=== PATIENT | male | born 1960 | race African-American/Black ===

== ENCOUNTER 2018-01-15 06:49 | Inpatient (IN) ==
[2018-01-15] MEDS ORDERED: Artificial Tears SOLN 15 ML BOTTLE BOTH EYES PRN (10:32)
[2018-01-15] MEDS ORDERED: Acetaminophen 325 MG TABLET PO PRN (10:37)
--- NOTE | 2018-01-15 11:17 | Internal Med History&Physical ---
Date of Encounter: 01/15/18 Time of Encounter: 11:19 Internal Medicine - H&P: HPI Chief complaint: mrs bacteremia Admitted From: Hospital to Hospital Transfer Plans for Post Hospital Care: [facility] History of present illness: Mr. Rivas is a 57 year old male that has tracheostomy, end-stage renal disease presented from transfer [facility] emergency department for MRSA bacteremia. Patient was seen to have a fever on 01/12/18 at his senior living the [facility] [place]. Blood cultures were drawn at the senior living and he was found to have MRSA bacteremia and started on vancomycin, Zosyn. Urine culture was also collected but patient makes minimal urine. Upon arrival to [place] ICU patient is to be nonverbal which is his baseline. He opens his eyes spontaneously. He does not interact. Patient was found to be hypotensive at [facility] and given 1 bolus of normal saline. Also a right femoral central line was placed. From senior living records patient has a history of MSSA bacteremia with aortic valve endocarditis. This was diagnosed at 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 Patient was admitted to on 09/17/2017 where he had a 87 day stay and ended up being put on tracheostomy and became HD dependent. He again had a YUE YUE which showed aortic valve vegetations and he was continued on chronic Keflex by infectious disease. After this admission patient was discharged to [facility] for further management. Patient has a history of acute CVA as per senior living records. 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 Past Med Surg Social Fam HX - Past Medical History Medical history: atrial fibrillation, diabetes, renal disease Additional medical history: MRSA, SEPSIS DUE TO MRSA, ANEMIA, V-TACH, RETENTION OF URINE Psychiatric history: depression, schizophrenia - Social History Smoking Status: Unknown if ever smoked Smokeless Tobacco Status: No (UNKNOWN) Alcohol use: unknown Drug use: unknown Internal Medicine - H&P: Meds Acetaminophen [Arthritis Pain Relief] 650 mg GTUBE Q6H PRN 01/15/18 [History] Albuterol Neb [Proventil Neb] 2.5 mg IH Q6HR 01/15/18 [History] Aripiprazole [Abilify] 5 mg GTUBE QDPC 01/15/18 [History] Aspirin [Lo-Dose Aspirin EC] 81 mg GTUBE QAM 01/15/18 [History] Atorvastatin [Lipitor] 40 mg GTUBE HS 01/15/18 [History] Benztropine Mesylate 0.5 mg GTUBE QAM 01/15/18 [History] Chlorhexidine Gluconate [Peridex] 15 ml MM BID 01/15/18 [History] Famotidine [Heartburn Prevention] 20 mg GTUBE QAM 01/15/18 [History] Folic Acid 1 mg GTUBE DAILY 01/15/18 [History] Folic Acid/Vit Bcomp,C [Renal-Ronald Tablet] 0.8 mg GTUBE QAM 01/15/18 [History] Gabapentin [Neurontin] 100 mg GTUBE TID 01/15/18 [History] Insulin Glargine,Hum.rec.anlog [Basaglar Kwikpen U-100] 14 unit SQ HS 01/15/18 [ History] Insulin LISPRO [Admelog Solostar] 0 unit SQ TIDAC 01/15/18 [History] Midodrine HCl 10 mg GTUBE QAM 01/15/18 [History] Ondansetron HCl [Zofran] 4 mg PO Q6H PRN 01/15/18 [History] OxyCODONE Immed Rel [Roxicodone 5 MG] 5 mg GTUBE Q8HR PRN 01/15/18 [History] Oxycodone HCl [Oxaydo] 5 mg GTUBE Q8H PRN 01/15/18 [History] Polyethylene Glycol 3350 [MiraLAX] 17 gm GTUBE DAILY PRN 01/15/18 [History] Thiamine (B-1) [Vitamin B-1] 250 mg GTUBE DAILY 01/15/18 [History] clonazePAM [Clonazepam] 0.5 mg GTUBE TID 01/15/18 [History] 3 Allergy/AdvReac Type Severity Reaction Status Date / Time No Known Allergies Allergy Verified 01/15/18 03:27 ROS unobtainable: due to mental status, other (Due to tracheostomy) All Systems PM: A 10-system review of systems was performed and is negative for pertinent findings except as documented above in the HPI. - Constitutional Vitals: Resp Pulse Ox 15 100 01/15/18 10:54 01/15/18 10:54 Exam: General: pleasant, without distress HEENT: Head atraumatic, normocephalic, EOMI, PERRL, absent ear discharge or trauma, Moist Mucous Membranes, uvula midline Neck: nontender to palpation, absent lymphadenopathy, Cardiovascualr: Regular rate and rhythm with no murmur, absent gallops or rubs, absent pedal edema, radial pulses 2 out of 4 Lungs: Clear to auscultation bilaterally, not in respiratory distress Abdomen: Soft nontender, nondistended positive bowel sounds, absent hepatomegaly Skin: warm and dry, absent rash, absent open wounds and nodules MSK: absent clubbing, cyanosis, joints without swelling Neuro: Cranial nerves II through XII intact, UE and LE sensation equal bilaterally, UE and LEstrength 5/5, alert oriented 3, Heel to power intact, finger to nose intact, Gait intact, rhombergs sign negative, b/l plantar reflexes downwards Psych: good insight and judgment, anxious, depressed - Time Spent With Patient Total time spent is greater than 50% in coordination of care (as documented) at patient's floor/unit and/or counseling patient:
--- NOTE | 2018-01-15 11:31 | Pulmonology History & Physical ---
<Solo Hays - Last Filed: 01/15/18 11:59> Date of Encounter: 01/15/18 Time of Encounter: 11:28 Assessment and Plan (1) Septic shock Current visit: Yes Status: Acute Patient presented with fever, hypertension, tachypnea Patient has positive blood cultures of MRSA drawn on [facility] He started on vancomycin and Zosyn on 01/12 at jail His presenting blood pressures 88/44 and patient is a end-stage renal disease patient was given 1 L IV fluid however is very fluid overloaded and could not be given additional fluid resuscitation His blood pressure remained and 88 over 40s lactic acid 1.8 Upon presenting at [facility] patient MAP was less than 60 and was started on Levophed. (2) ESRD (end stage renal disease) Current visit: Yes Status: Acute Patient has a history of ESRD on Wednesday, , Wednesday hemodialysis. Patient has been ESRD for 2 months now longterm records indicate ESRD secondary to acute tubular necrosis with overt hypotension without improvement after being started on hemodialysis. Nephrology consultation for dialysis . CV fluid overloaded with bilateral lower extremity edema and bilateral upper extremity edema. (3) MRSA bacteremia Current visit: Yes Status: Acute Patient has positive blood cultures on 01/12 Source: Possibly pneumonia as patient has thick sputum production. Patient also has left permacath which does not appear to be infected. Plan: Repeat blood cultures drawn on 01/15 by [facility] emergency department. We will draw blood cultures from permacath. We will obtain sputum culture. Continue vancomycin. (4) Chronic endocarditis Current visit: Yes Status: Acute Patient has history of MSSA endocarditis. Initially diagnosed at [facility] on September/2017. YUE at that time showed aortic valve abscess and vegetation. Patient opted for medical management and was put on IV antibiotics for 6 weeks. Patient was readmitted to [facility] were repeat YUE on 10/05 showed a EF of 50-55% with aortic valve vegetation and moderate severe aortic insufficiency and moderate tricuspid regurgitation and patient was continued on chronic oral Keflex by infectious disease. Patient now has MRSA bacteremia and there is concern for endocarditis We have ordered a TTE and cardiology has been consulted as well. If TTE is nondiagnostic we will obtain a YUE. Qualifiers: Endocarditis type: infective Infective endocarditis organism: bacterial Qualified Code(s): I33.0 - Acute and subacute infective endocarditis (5) Type 2 diabetes mellitus Current visit: Yes Status: Acute Patient has a history of type 2 diabetes mellitus insulin-dependent Hemoglobin A1c on 08/27 was 9.8 Patient is nothing by mouth. 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 Rivas is a 57 year old male that has tracheostomy, end-stage renal disease presented from transfer [facility] emergency department for MRSA bacteremia. Patient was seen to have a fever on 01/12/18 at his jail the [facility] [place]. Blood cultures were drawn at the jail and he was found to have MRSA bacteremia and started on vancomycin, Zosyn. Urine culture was also collected but patient makes minimal urine. Upon arrival to [place] ICU patient is to be nonverbal which is his baseline. He opens his eyes spontaneously. He does not interact. Patient was found to be hypotensive at [facility] and given 1 bolus of normal saline. Also a right femoral central line was placed. From jail records patient has a history of MSSA bacteremia with aortic valve endocarditis. 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 Patient was admitted to on 09/17/2017 where he had a 87 day stay and ended up being put on tracheostomy and became HD dependent. He again had a YUE YUE which showed aortic valve vegetations and he was continued on chronic Keflex by infectious disease. After this admission patient was discharged to [facility] for further management. Patient has a history of acute CVA as per jail records. 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 Past Med Surg Social Fam HX - Past Medical History Medical history: atrial fibrillation, diabetes, renal disease Additional medical history: MRSA, SEPSIS DUE TO MRSA, ANEMIA, V-TACH, RETENTION OF URINE Psychiatric history: depression, schizophrenia - Social History Smoking Status: Unknown if ever smoked Smokeless Tobacco Status: No (UNKNOWN) Alcohol use: unknown Drug use: unknown Medications and Allergies Acetaminophen [Arthritis Pain Relief] 650 mg GTUBE Q6H PRN 01/15/18 [History] Albuterol Neb [Proventil Neb] 2.5 mg IH Q6HR 01/15/18 [History] Aripiprazole [Abilify] 5 mg GTUBE QDPC 01/15/18 [History] Aspirin [Lo-Dose Aspirin EC] 81 mg GTUBE QAM 01/15/18 [History] Atorvastatin [Lipitor] 40 mg GTUBE HS 01/15/18 [History] Benztropine Mesylate 0.5 mg GTUBE QAM 01/15/18 [History] Chlorhexidine Gluconate [Peridex] 15 ml MM BID 01/15/18 [History] Famotidine [Heartburn Prevention] 20 mg GTUBE QAM 01/15/18 [History] Folic Acid 1 mg GTUBE DAILY 01/15/18 [History] Folic Acid/Vit Bcomp,C [Renal-Ronald Tablet] 0.8 mg GTUBE QAM 01/15/18 [History] Gabapentin [Neurontin] 100 mg GTUBE TID 01/15/18 [History] Insulin Glargine,Hum.rec.anlog [Basaglar Kwikpen U-100] 14 unit SQ HS 01/15/18 [ History] Insulin LISPRO [Admelog Solostar] 0 unit SQ TIDAC 01/15/18 [History] Midodrine HCl 10 mg GTUBE QAM 01/15/18 [History] Ondansetron HCl [Zofran] 4 mg PO Q6H PRN 01/15/18 [History] OxyCODONE Immed Rel [Roxicodone 5 MG] 5 mg GTUBE Q8HR PRN 01/15/18 [History] Oxycodone HCl [Oxaydo] 5 mg GTUBE Q8H PRN 01/15/18 [History] Polyethylene Glycol 3350 [MiraLAX] 17 gm GTUBE DAILY PRN 01/15/18 [History] Thiamine (B-1) [Vitamin B-1] 250 mg GTUBE DAILY 01/15/18 [History] clonazePAM [Clonazepam] 0.5 mg GTUBE TID 01/15/18 [History] 3 Allergy/AdvReac Type Severity Reaction Status Date / Time No Known Allergies Allergy Verified 01/15/18 03:27 ROS unobtainable: due to mental status, other (tracheostomy) All Systems: The remainder of the systems were reviewed and are negative Physical Examination Vital Signs: Vital Signs, Last 4 Hours Resp Pulse Ox 01/15/18 10:54 15 100 01/15/18 09:40 26 99 General appearance: no acute distress, other (Opens eyes spontaneously) Eyes: nonicteric ENT: oropharynx dry Neck: supple, no JVD Effort: mildly labored, other (Tracheostomy) Inspection: normal Auscultation: bilateral: rhonchi Cardiovascular: regular rate and rhythm Gastrointestinal: normoactive bowel sounds, soft, non-tender, non-distended, other (PEG tube without erythema) Integumentary: normal, other Extremities: no clubbing, pink and warm, pulses normal, edema ( has edema in bilateral upper and lower extremities) Musculoskeletal: ROM normal, other (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 Rivas is a 57 year old male All Systems: The remainder of the systems were reviewed and are negative Physical Examination Vital Signs: Vital Signs, Last 4 Hours Resp Pulse Ox 01/15/18 10:54 15 100 01/15/18 09:40 26 99 - Attending Attestation I examined this patient and my medical decision-making was reviewed with the Resident Physician. I agree with the documented findings, disposition and treatment plan as described except to the extent set forth below. Patient seen and examined. Labs, radiology, chart personally reviewed. 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 Pulmonary: Acceptable oxygenation and ventilation and adjusted vent setting with lowering his respiratory rate and patient chronic tracheostomy and is requiring vent. Cardiovascular: Patient is in septic shock and he has bacteremia and he has strong history of previous endocarditis. Cardiology consulted for evaluation and agreed to start with TTE and may need eventually YUE. Overall prognosis is poor and he is not tolerating volume because of his ESRD and he will need HD. GI: Nutrition per dietary and GI prophylaxis per routine. Patient has feeding tube. Heme: DVT prophylaxis per routine. ID: Continue antibiotics and plan to de-escalation. Patient will be on broad- spectrum antibiotics and will consult infectious disease. Renal; patient underwent hemodialysis and nephrology is being contacted. Source of bacteremia is unclear however it could be or differential diagnosis might be the source of the bactremia. Endorcine: blood glucose is monitored Lines: all lines checked and no evidence of infections Skin: skin care to prevent pressure ulcers per nursing routine care. Wound care. Prognosis is poor. I spent 35 min of Critical Care time with this patient. It involved decision making of high complexity to assess, manipulate, and support vital organ system failure and/or to prevent further life threatening deterioration of the patient' s condition. The time involved in the performance of separately reportable procedures was not counted toward critical care time.
[2018-01-15] MEDS: Artificial Tears SOLN 15 ML BOTTLE BOTH EYES SCH ×3 (11:48→21:07)
[2018-01-15] MEDS ORDERED: *HR* Dextrose 50 % in Water (Syg) 50 ML SYRINGE IVP PRN (11:54)
[2018-01-15] MEDS ORDERED: D5% in Water 1,000 ML IVC PRN (11:54)
[2018-01-15] MEDS ORDERED: Dextrose Gel 15 GM/37.5 ML TUBE PO PRN ×2 (11:54)
--- NOTE | 2018-01-15 11:58 | Sepsis Event Note ---
<Solo Hays - Last Filed: 01/15/18 11:59> Sepsis Reassessment Note - Evaluation Current Stage of Sepsis: septic shock Possible Source of Sepsis: other (or pna) - Focused Exam Date of Encounter: 01/15/18 Time of Encounter: 10:00 Vital Signs: Vital Signs Resp Pulse Ox 01/15/18 10:54 15 100 01/15/18 09:40 26 99 Respiratory Exam: Present: rhonchi, patient mechanically (tracheostomy) Cardiovascular Exam: Present: RRR Capillary Refill: < 2 seconds Peripheral Pulse Strength: 1+ faint Peripheral Pulse Location: Pedal Skin Exam: normal turgor <Candy Parmar - Last Filed: 01/15/18 12:31> Sepsis Reassessment Note - Focused Exam Vital Signs: Vital Signs Temp Resp Pulse Ox 01/15/18 11:30 99.2 F 01/15/18 10:54 15 100 01/15/18 09:40 26 99
--- NOTE | 2018-01-15 13:58 | Nephrology Consult Note ---
Date of Encounter: 01/15/18 Time of Encounter: 12:00 Assessment and Plan (1) ESRD (end stage renal disease) Current Visit: Yes Status: Acute Will plan HD today with UF goal of 2-3kg with albumin bolus prior Lytes stable except sodium slightly low at 133 (2) Septic shock Current Visit: Yes Status: Acute Abx per primary jesús. Vanco by levels Agree with TTE and YUE if needed May need lines removed (3) Volume overload Current Visit: Yes Status: Acute Will try UF today though problematic given persistent hypotension. Pressor support would be helpful Qualifiers: Hypervolemia type: other Qualified Code(s): E87.79 - Other fluid overload History of Present Illness - Reason for Consult Consult date: 01/15/18 end stage renal disease Requesting physician: Solo Hays - History of Present Illness 57 y o male with PMH of chronic resp failure with trach and vent dependent, ESRD vs [facility] HD dependent with history of MSSA endocarditis in august, Afib, DM, CVA admitted from [facility] with fevers and positive blood cultures. Renal consulted for ESRD management. Pt receives HD T-T-S regularly. [facility], history obtained from records. Pt seen and examined with eyes closed and not responsive to verbal/painful stimuli. Anasarca observed along with hypotension appears chronic with pt on midodrine, he received a liter bolus at [place] [facility] Past Med Surg Social Fam HX - Past Medical History Medical history: atrial fibrillation, diabetes, renal disease Additional medical history: MRSA, SEPSIS DUE TO MRSA, ANEMIA, V-TACH, RETENTION OF URINE Psychiatric history: depression, schizophrenia - Social History Smoking Status: Unknown if ever smoked Smokeless Tobacco Status: No (UNKNOWN) Alcohol use: unknown Drug use: unknown - Family History Mother History Unknown: Yes Father History Unknown: Yes Medications and Allergies Acetaminophen [Arthritis Pain Relief] 650 mg GTUBE Q6H PRN 01/15/18 [History] Albuterol Neb [Proventil Neb] 2.5 mg IH Q6HR 01/15/18 [History] Amino Acids/Protein Hydrolys [Pro-Stat Awc Liquid] 30 ml GTUBE BID 01/15/18 [ History] Aripiprazole [Abilify] 5 mg GTUBE QDPC 01/15/18 [History] Aspirin [Lo-Dose Aspirin EC] 81 mg GTUBE QAM 01/15/18 [History] Atorvastatin [Lipitor] 40 mg GTUBE HS 01/15/18 [History] Benztropine Mesylate 0.5 mg GTUBE QAM 01/15/18 [History] Chlorhexidine Gluconate [Peridex] 15 ml MM BID 01/15/18 [History] Famotidine [Heartburn Prevention] 20 mg GTUBE QAM 01/15/18 [History] Folic Acid 1 mg GTUBE DAILY 01/15/18 [History] Folic Acid/Vit Bcomp,C [Renal-Ronald Tablet] 0.8 mg GTUBE QAM 01/15/18 [History] Gabapentin [Neurontin] 100 mg GTUBE TID 01/15/18 [History] Insulin Glargine,Hum.rec.anlog [Basaglar Kwikpen U-100] 14 unit SQ HS 01/15/18 [ History] Insulin LISPRO [Admelog Solostar] 0 - 12 unit SQ Q6H 01/15/18 [History] Metoclopramide HCl 5 mg PO BID 01/15/18 [History] Midodrine HCl 10 mg GTUBE BID 01/15/18 [History] Ondansetron HCl [Zofran] 4 mg GTUBE Q6H PRN 01/15/18 [History] OxyCODONE Immed Rel [Roxicodone 5 MG] 5 mg GTUBE Q8HR PRN 01/15/18 [History] Polyethylene Glycol 3350 [MiraLAX] 17 gm GTUBE DAILY PRN 01/15/18 [History] Thiamine (B-1) [Vitamin B-1] 250 mg GTUBE DAILY 01/15/18 [History] clonazePAM [Clonazepam] 0.5 mg GTUBE TID 01/15/18 [History] 3 Allergy/AdvReac Type Severity Reaction Status Date / Time No Known Allergies Allergy Verified 01/15/18 03:27 Review of Systems ROS unobtainable: due to mental status Exam - Vital Signs Vital signs: Initial Vital Signs Resp Pulse Ox 26 99 01/15/18 09:40 01/15/18 09:40 Vital Signs - Last 8 Hours Temp Resp Pulse Ox 01/15/18 13:06 20 100 01/15/18 11:30 99.2 F 09/29/18 10:54 15 100 01/15/18 09:40 26 99 Intake and Output 01/14/18 01/15/18 01/15/18 23:59 07:59 15:59 Output Total 50 / 50 Balance -50 / -50 Output: Catheter 50 / 50 Other: Weight 68.8 kg Blood Glucose* 260 Patient Weight 01/15/18 23:59 Weight 68.8 kg - General Appearance General appearance: chronically ill Exam: with trach on ventilator EENT: ATNC, mucous membranes moist Neck: no JVD, supple Respiratory: course breath sounds Cardiology: edema (anasarca), normal S1, normal S2 - Dialysis Access Dialysis Vascular Access: Venous Catheter (permcath) Gastrointestinal: no tenderness, no guarding Integumentary: warm and dry Additional Comments: nonrepsonsive to verbal or painful stimuli Musculoskeletal: no deformities Additional Comments: unable to assess due to condition Consult Discharge Plan - Plan Referrals: Thomas Montero MD [Primary Care Provider] -
[2018-01-15] MEDS ORDERED: Scopolamine Patch 1.5 MG PATCH.TD72 TD SCH (14:15)
[2018-01-15] MEDS ORDERED: 0.9 % Sodium Chloride 250 ML IVC PRN (14:28)
[2018-01-15] MEDS ORDERED: *HR* Heparin 10,000 UNIT/10 ML VIAL IV PRN (14:28)
[2018-01-15] MEDS ORDERED: Albumin 25% 25gram/100mL 25 GM/100 ML IV.SOLN IVPB PRN (14:28)
[2018-01-15] MEDS ORDERED: 0.9 % Sodium Chloride 1,000 ML PRIME SCH (14:30)
[2018-01-15] MEDS: Norepinephrine 4 MG in D5% in Water 250 ML IVC SCH (14:51)
--- NOTE | 2018-01-15 14:52 | Cardiology Consult Note ---
Date of Encounter: 01/15/18 Time of Encounter: 11:00 Assessment and Plan (1) MRSA bacteremia Current Visit: Yes Status: Acute Source unclear. AV vegetation not clear on TTE. Plan YUE, however, called pt POA twice and left a message regarding YUE consent, no call back yet. Need to clarify goal of care from POA before non-emergent procedures. (2) Chronic endocarditis Current Visit: Yes Status: Acute MSSA AV, completion of iv abx, on chronic keflex. AV calcification/scar chronic appearance. No evidence of MV or TV vegetations on TTE. Qualifiers: Endocarditis type: infective Infective endocarditis organism: bacterial Qualified Code(s): I33.0 - Acute and subacute infective endocarditis (3) Aortic regurgitation Current Visit: Yes Status: Acute Know moderate -severe secondary to endocarditis. Repeated TTE today similar, mild LV dilatation, LVEF 55-50% with LVIDs 4cm and LVIDD 6cm. Conservative management per pt/family in 09/2017. No requirement of high PEEP. - Avoid high afterload. Qualifiers: Cardiac valve disease etiology: nonrheumatic Qualified Code(s): I35.1 - Nonrheumatic aortic (valve) insufficiency (4) Septic shock Current Visit: Yes Status: Acute (5) ESRD (end stage renal disease) Current Visit: Yes Status: Acute (6) Type 2 diabetes mellitus Current Visit: Yes Status: Acute Qualifiers: Diabetes mellitus watermaster insulin use: with residential use Diabetes mellitus complication status: with kidney complications Diabetes mellitus complication detail: with chronic kidney disease Chronic kidney disease stage : on chronic dialysis Qualified Code(s): E11.22 - Type 2 diabetes mellitus with diabetic chronic kidney disease; N18.6 - End stage renal disease; Z79.4 - detention (current) use of insulin; Z99.2 - Dependence on renal dialysis (7) Volume overload Current Visit: Yes Status: Acute Qualifiers: Hypervolemia type: other Qualified Code(s): E87.79 - Other fluid overload Discussion w patient/family: The assessment and plan as outlined above was discussed with the patient and/or family members who expressed understanding and agreement. All questions were answered. Thank you for involving us in the care of your patient. Please call with any questions. History of Present Illness Consult date: 01/15/18 Requesting physician: Solo Hays Consult reason: ? infective endocarditis Chief complaint: fever History of present illness: Mr. Rivas is a 57 year old male ho ESRD on HD, DM. MSSA AV endocarditis 09/2017 with moderate-severe AI and mod TR, completed 6-wk iv abx then on chronic keflex per family decision. Fever 3 days ago in SNF, + MRSA bacteremia. Admitted for septic shock. Consulted for possible infective endocarditis. Currently on levo, trach-vent A/C w/o high PEEP, plan HD. Patient eye open name calling w/o further interaction. ECG SR, PACs, low voltage limb leads, NS ST. Tele no event. TTE read by me today as follows Called pt POA twice and left a message regarding YUE consent, no call back yet. TTE 01/15/18 LVEF 55-60%. Normal LV systolic function. Mildly dilated left ventricle. Mild left ventricular diastolic dysfunction. Mild right ventricular hypokinesis. Mildly dilated right ventricle. Mildly dilated left atrium and right atrium. Mild aortic stenosis. Moderate-severe aortic regurgitation. Cannot rule out vegetatoin given chronic calcified leaflets ho infective endocarditis. Mild mitral regurgitation. Moderate-severe tricuspid regurgitation. Severe pulmonary hypertension. Past Med Surg Social Fam HX - Past Medical History Medical history: atrial fibrillation, diabetes, renal disease Additional medical history: MRSA, SEPSIS DUE TO MRSA, ANEMIA, V-TACH, RETENTION OF URINE Psychiatric history: depression, schizophrenia - Social History Smoking Status: Unknown if ever smoked Smokeless Tobacco Status: No (UNKNOWN) Alcohol use: unknown Drug use: unknown - Family History Mother History Unknown: Yes Father History Unknown: Yes Medications and Allergies Acetaminophen [Arthritis Pain Relief] 650 mg GTUBE Q6H PRN 01/15/18 [History] Albuterol Neb [Proventil Neb] 2.5 mg IH Q6HR 01/15/18 [History] Amino Acids/Protein Hydrolys [Pro-Stat Awc Liquid] 30 ml GTUBE BID 01/15/18 [ History] Aripiprazole [Abilify] 5 mg GTUBE QDPC 01/15/18 [History] Aspirin [Lo-Dose Aspirin EC] 81 mg GTUBE QAM 01/15/18 [History] Atorvastatin [Lipitor] 40 mg GTUBE HS 01/15/18 [History] Benztropine Mesylate 0.5 mg GTUBE QAM 01/15/18 [History] Chlorhexidine Gluconate [Peridex] 15 ml MM BID 01/15/18 [History] Famotidine [Heartburn Prevention] 20 mg GTUBE QAM 01/15/18 [History] Folic Acid 1 mg GTUBE DAILY 01/15/18 [History] Folic Acid/Vit Bcomp,C [Renal-Ronald Tablet] 0.8 mg GTUBE QAM 01/15/18 [History] Gabapentin [Neurontin] 100 mg GTUBE TID 01/15/18 [History] Insulin Glargine,Hum.rec.anlog [Basaglar Kwikpen U-100] 14 unit SQ HS 01/15/18 [ History] Insulin LISPRO [Admelog Solostar] 0 - 12 unit SQ Q6H 01/15/18 [History] Metoclopramide HCl 5 mg PO BID 01/15/18 [History] Midodrine HCl 10 mg GTUBE BID 01/15/18 [History] Ondansetron HCl [Zofran] 4 mg GTUBE Q6H PRN 01/15/18 [History] OxyCODONE Immed Rel [Roxicodone 5 MG] 5 mg GTUBE Q8HR PRN 01/15/18 [History] Polyethylene Glycol 3350 [MiraLAX] 17 gm GTUBE DAILY PRN 01/15/18 [History] Thiamine (B-1) [Vitamin B-1] 250 mg GTUBE DAILY 01/15/18 [History] clonazePAM [Clonazepam] 0.5 mg GTUBE TID 01/15/18 [History] 3 Allergy/AdvReac Type Severity Reaction Status Date / Time No Known Allergies Allergy Verified 01/15/18 03:27 ROS unobtainable: due to mental status All Systems Review: The remainder of the systems were reviewed and are negative Physical Examination Vital Signs, Last 4 Hours Temp Resp Pulse Ox 01/15/18 13:06 20 100 01/15/18 11:30 99.2 F 01/15/18 10:54 15 100 Other: General/neuro: NAD, trach-vent, eyes open to name calling only unable to perform further neuro exam HEENT: anicteric Neck: unable to assess JVD Chest: coarse BS B/L, scattered rhonchi. L-upper chest HD catheter present. Heart: RRR, S1/S2, no S3/S4, 3/6 SM USB, 1-2/4 DM USB, no G/R Abdominal: BS +, soft, ND Peripheral Pulses: radial pulse 2+ B/L, DP 2+ B/L Skin/Extremities: warm extremities, anasarca Results - Imaging and Cardiology Echo: image reviewed Other Results: Tele reviewed. Chest CT report reviewed. - EKG Interpretation EKG results cardiology: personally reviewed Consult Discharge Plan - Plan Referrals: Thomas Montero MD [Primary Care Provider] -
[2018-01-15] MEDS: *HR* Heparin 5,000 UNIT/ML VIAL SQ SCH ×2 (15:17→21:05)
[2018-01-15] MEDS: clonazePAM 0.5 MG TABLET GTUBE SCH ×2 (15:17→20:58)
[2018-01-15] MEDS: Insulin LISPRO 300 UNITS/3 ML VIAL SQ SCH ×2 (15:17→18:18)
[2018-01-15] MEDS ORDERED: Albumin 25% 12.5gm/50mL 25.0 GM/100 ML IV.SOLN ONE (15:19)
[2018-01-15] MEDS ORDERED: Piperacillin/Tazobactam 3.375 GM in 0.9 % Sodium Chloride Mini Bag 100 ML IVPB SCH (18:00)
[2018-01-15] MEDS ORDERED: Famotidine 20 MG/2 ML VIAL IVP SCH (18:00)
[2018-01-15 18:14] LABS: Hepatitis B Surface Antigen Nonreactive (Nonreactive)
[2018-01-15] MEDS ORDERED: Vancomycin 500 MG in 0.9 % Sodium Chloride Mini Bag 100 ML IVPB ONE (20:00)
[2018-01-15] MEDS: Chlorhexidine Rinse 15 ML MOUTHWASH MM SCH (21:05)
[2018-01-16] MEDS: Artificial Tears SOLN 15 ML BOTTLE BOTH EYES SCH ×6 (00:26→21:03)
[2018-01-16] MEDS: Insulin LISPRO 300 UNITS/3 ML VIAL SQ SCH ×4 (00:26→18:36)
[2018-01-16] MEDS: Piperacillin/Tazobactam 3.375 GM in 0.9 % Sodium Chloride Mini Bag 100 ML IVPB SCH (00:26)
[2018-01-16] MEDS: Norepinephrine 4 MG in D5% in Water 250 ML IVC SCH ×2 (01:15→16:34)
[2018-01-16 03:58] LABS: Acinetobacter baumannii by PCR Not Detected (Not Detect); Enterobacter cloacae Cmplx PCR Not Detected (Not Detect); Enterobacteriaceae by PCR DETECTED (Not Detect); Enterococcus by PCR Not Detected (Not Detect); Escherichia coli by PCR Not Detected (Not Detect); Staphylococcus aureus by PCR Not Detected (Not Detect); Staphylococcus by PCR Not Detected (Not Detect); Streptococcus agalactiae(B)PCR Not Detected (Not Detect); Streptococcus by PCR Not Detected (Not Detect); Streptococcus pneumoniae PCR Not Detected (Not Detect); Streptococcus pyogenes (A) PCR Not Detected (Not Detect); blaKPC Carbapenem-Resist Gene Not Detected (Not Detect); mecA Methicillin-Resist Gene Not Detected (Not Detect); vanA/B Vancomycin-Resist Genes Not Detected (Not Detect)
[2018-01-16 03:59] LABS: Candida albicans by PCR Not Detected (Not Detect); Candida glabrata by PCR Not Detected (Not Detect); Candida krusei by PCR Not Detected (Not Detect); Candida parapsilosis by PCR Not Detected (Not Detect); Candida tropicalis by PCR Not Detected (Not Detect); Klebsiella oxytoca by PCR Not Detected (Not Detect); Klebsiella pneumoniae by PCR DETECTED (Not Detect); Proteus by PCR Not Detected (Not Detect); Pseudomonas aeruginosa by PCR Not Detected (Not Detect); Serratia marcescens by PCR Not Detected (Not Detect)
[2018-01-16] MEDS: *HR* Heparin 5,000 UNIT/ML VIAL SQ SCH ×3 (05:28→21:01)
[2018-01-16 05:38] LABS: ABG Base Excess 3 mEq/L (-2 to 3); ABG HCO3 25 mEq/L (21-27); ABG Oxygen Saturation 99 % (95-98); ABG PCO2 31 mmHg (35-45); ABG PH 7.52 pH Units (7.32-7.45); ABG PO2 103 mmHg (85-104); ABG TCO2 26 mEq/L (20-26); Blood Gas Modality ASSIST CONTROL; Blood Gas PEEP 5 cm H2O; Blood Gas Respiration Rate 14; Blood Gas VT 400 cc
[2018-01-16 05:46] LABS: Basophils % 0.2 %; Eosinophils # 0.1 K/mcL (0.0-0.6); Eosinophils % 0.7 %; Hematocrit 32.7 % (37.5-50.1); Hemoglobin 9.7 g/dL (12.9-16.9); Immature Granulocytes % 0.3 % (0-4); Lymphocytes % 10.5 %; Mean Corpuscular HGB Conc 29.7 g/dL (31.6-35.5); Mean Corpuscular Hemoglobin 28.3 pg (28.0-33.3); Mean Corpuscular Volume 95.3 fL (83.0-100.0); Mean Platelet Volume 13.8 fL (9.4-12.4); Monocytes # 0.7 K/mcL (0.0-1.3); Monocytes % 6.8 %; Neutrophils # 7.8 K/mcL (1.6-8.9); Nucleated Red Blood Cells 0.2 /100 WBC (0); Platelet Count 105 K/mcL (140-400); Red Blood Count 3.43 M/mcL (4.19-5.50); Red Cell Distribution Width 18.4 % (11.5-14.5); Segmented Neutrophils % 81.5 %
[2018-01-16 06:04] LABS: Calcium 8.2 mg/dL (8.6-10.3); Potassium 3.8 mEq/L (3.5-5.1)
--- NOTE | 2018-01-16 07:57 | Pulmonology Progress Note ---
<Buster Sherman - Last Filed: 01/16/18 14:19> Date of Encounter: 01/16/18 Time of Encounter: 07:56 Assessment and Plan (1) Septic shock Current Visit: Yes Status: Acute Patient persistently hypotensive with most recent blood pressure 96/45. Currently on 5 mcg/m of norepinephrine drip Goals to maintain MAP of 60 in order to maintain adequate tissue perfusion Patient lactic acid found to be normal at 1.8 Patient is currently receiving vancomycin and meropenem for MRSA and gram- negative alex coverage Continue to monitor (2) ESRD (end stage renal disease) Current Visit: Yes Status: Acute Patient has recent (2 month) history of end-stage renal disease Patient scheduled for Wednesday, Wednesday hemodialysis Nephrology consult obtained and is following HD catheter shows Klebsiella bacteria growth-may be removed tomorrow by interventional radiology per recommendations from nephrology Plan to schedule for insertion of temporary dialysis catheter for continuation of hemodialysis (3) MRSA bacteremia Current Visit: Yes Status: Acute Patient with positive blood culture on 01/12 showing MRSA bacteremia Patient's sputum culture as well as culture of HD catheter revealed gram- negative rods Potential source of MRSA likely due to chronic endocarditis YUE in follow-up to TTE results pending appropriate approval from patient power of manager maritime Continue vancomycin for MRSA coverage (4) Chronic endocarditis Current Visit: Yes Status: Acute Patient history 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-subsequent medical management with IV antibiotics and oral Keflex Patient has moderate to severe aortic insufficiency and moderate tricuspid regurgitation as well as mild mitral regurgitation-harsh, blowing systolic murmur 3/6 noted in the fourth intercostal space left sternal border Cardiology is consulted and is following TTE nondiagnostic, we will perform YUE after appropriate consent obtained from patient power of manager maritime Qualifiers: Endocarditis type: infective Infective endocarditis organism: bacterial Qualified Code(s): I33.0 - Acute and subacute infective endocarditis (5) Type 2 diabetes mellitus Current Visit: Yes Status: Acute Patient is currently receiving a low dose sliding scale insulin regimen POC glucose shows well controlled with last reading at 146 Continue to monitor Qualifiers: Diabetes mellitus terminal gauger insulin use: with jail use Diabetes mellitus complication status: with kidney complications Diabetes mellitus complication detail: with chronic kidney disease Chronic kidney disease stage : on chronic dialysis Qualified Code(s): E11.22 - Type 2 diabetes mellitus with diabetic chronic kidney disease; N18.6 - End stage renal disease; Z79.4 - computer terminal operator (current) use of insulin; Z99.2 - Dependence on renal dialysis Subjective Principal diagnosis: Septic shock Interval history: Patient is a 57-year-old -[place] male with history of tracheostomy placement, end-stage renal disease, and aortic valve endocarditis. Patient was a transfer from the [place] emergency department for MRSA bacteremia which was discovered after patient was found to have a fever on January [facility] at [facility] and the [facility]. Blood cultures drawn at the [facility] revealed MRSA bacteremia anemia the patient was subsequently started on vancomycin and Zosyn. Patient blood cultures sense shown MRSA bacteremia of the blood as well as Klebsiella infection of his HD catheter. Patient has been started on meropenem for coverage of gram-negative rods with cessation of Zosyn. Per nurse staff, there have been no acute events overnight, patient remains unresponsive to physical exam-head CT considered for assessment of potential intracranial process. Objective PUL Vital signs: Last Vital Signs Temp 99.8 F H 01/16/18 02:45 Pulse 87 01/16/18 06:00 Resp 17 01/16/18 06:22 BP 101/45 01/16/18 06:22 Pulse Ox 100 01/16/18 06:22 General appearance: no acute distress, asleep Eyes: nonicteric Auscultation: bilateral: clear Cardiovascular: murmur noted (There is a harsh 3/6 blowing systolic murmur noted in the fourth intercostal space left sternal border) Gastrointestinal: hypoactive bowel sounds, soft, non-tender, non-distended Integumentary: normal Extremities: no cyanosis unable to assess due to mental status Ventilator Settings Ventilator Settings: Ventilator Settings, Last 8 Hours Ventilator Tidal Volume 400 Setting Ventilator Tidal Volume 400 Setting Ventilator Tidal Volume 400 Setting Ventilator Tidal Volume 400 Setting Ventilator Tidal Volume 400 Setting Ventilator Tidal Volume 400 Setting Ventilator Tidal Volume 400 Setting Ventilator Tidal Volume 400 Setting Ventilator Tidal Volume 400 Setting Ventilator Tidal Volume 400 Setting Ventilator Tidal Volume 400 Setting Ventilator Tidal Volume 400 Setting Ventilator Respiratory Rate 14 Setting Ventilator Respiratory Rate 14 Setting Ventilator Respiratory Rate 14 Setting Ventilator Respiratory Rate 14 Setting Ventilator Respiratory Rate 14 Setting Ventilator Respiratory Rate 14 Setting Ventilator Respiratory Rate 14 Setting Ventilator Respiratory Rate 14 Setting Ventilator Respiratory Rate 14 Setting Ventilator Respiratory Rate 14 Setting Ventilator Respiratory Rate 14 Setting Ventilator Respiratory Rate 14 Setting Actual Respiratory Rate 19 Actual Respiratory Rate 23 Actual Respiratory Rate 18 Actual Respiratory Rate 16 Actual Respiratory Rate 19 Actual Respiratory Rate 19 Actual Respiratory Rate 17 Actual Respiratory Rate 16 Actual Respiratory Rate 16 Actual Respiratory Rate 16 Actual Respiratory Rate 18 Positive End Expiratory 5 Pressure Positive End Expiratory 5 Pressure Positive End Expiratory 5 Pressure Positive End Expiratory 5 Pressure Positive End Expiratory 5 Pressure Positive End Expiratory 5 Pressure Positive End Expiratory 5 Pressure Positive End Expiratory 5 Pressure Positive End Expiratory 5 Pressure Positive End Expiratory 5 Pressure Positive End Expiratory 5 Pressure Positive End Expiratory 5 Pressure Peak Inspiratory Airway 16 Pressure Peak Inspiratory Airway 17 Pressure Peak Inspiratory Airway 17 Pressure Peak Inspiratory Airway 17 Pressure Peak Inspiratory Airway 16 Pressure Peak Inspiratory Airway 17 Pressure Peak Inspiratory Airway 17 Pressure Peak Inspiratory Airway 18 Pressure Peak Inspiratory Airway 18 Pressure Peak Inspiratory Airway 17 Pressure Peak Inspiratory Airway 18 Pressure Results - Laboratory Findings CBC and BMP: 01/16/18 05:30 01/16/18 05:30 ABG ABG pH 7.52 pH Units (7.32-7.45) H 01/16/18 05:35 ABG pCO2 31 mmHg (35-45) L 01/16/18 05:35 ABG pO2 103 mmHg (85-104) 01/16/18 05:35 ABG O2 Saturation 99 % (95-98) H 01/16/18 05:35 Abnormal lab findings: Abnormal lab results RBC 3.43 M/mcL (4.19-5.50) L 01/16/18 05:30 Hgb 9.7 g/dL (12.9-16.9) L 01/16/18 05:30 Hct 32.7 % (37.5-50.1) L 01/16/18 05:30 MCHC 29.7 g/dL (31.6-35.5) L 01/16/18 05:30 RDW 18.4 % (11.5-14.5) H 01/16/18 05:30 Plt Count 105 K/mcL (140-400) L 01/16/18 05:30 MPV 13.8 fL (9.4-12.4) H 01/16/18 05:30 Nucleated RBCs/100 WBC 0.2 /100 WBC (0) H 01/16/18 05:30 ABG pH 7.52 pH Units (7.32-7.45) H 01/16/18 05:35 ABG pCO2 31 mmHg (35-45) L 01/16/18 05:35 ABG O2 Saturation 99 % (95-98) H 01/16/18 05:35 Sodium 135 mEq/L (136-145) L 01/16/18 05:30 Chloride 97 mEq/L (98-107) L 01/16/18 05:30 BUN 53 mg/dL (6-20) H 01/16/18 05:30 Creatinine 3.14 mg/dL (0.70-1.30) H 01/16/18 05:30 Est GFR ( Amer) 25 (> 60) L 01/16/18 05:30 Est GFR (Non-Af Amer) 21 (> 60) L 01/16/18 05:30 Glucose 201 mg/dL (70-105) H 01/16/18 05:30 POC Glucose 175 mg/dL (70-99) H 01/16/18 05:32 Calcium 8.2 mg/dL (8.6-10.3) L 01/16/18 05:30 Vancomycin Trough 22 mcg/mL (5-10) H 01/15/18 12:02 Enterobacteriac sp PCR DETECTED (Not Detect) A 01/15/18 16:00 Klebsiella pneumoniae DETECTED (Not Detect) A 01/15/18 16:00 - Microbiology Findings Microbiology Findings: Microbiology, Last 48 Hours 01/15/18 16:15 Blood Culture - Preliminary Central Venous Catheter Culture is incubating and being continuously monitored for growth. Final report to follow. 01/15/18 16:00 Blood Culture - Preliminary Central Venous Catheter Gram Negative Alex 01/15/18 12:10 Sputum Culture - Preliminary Aspirate - Clinical Findings Intake & Output: Intake & Output 01/15/18 01/15/18 01/16/18 15:59 23:59 07:59 Intake Total 838 / 838 216 / 216 Output Total 50 / 50 3855 / 3855 95 / 95 Balance -50 / -50 -3017 / -3017 121 / 121 Weight 68.8 kg 67.2 kg Consult Discharge Plan - Plan Referrals: Thomas Montero MD [Primary Care Provider] - <Candy Parmar - Last Filed: 01/16/18 20:21> Date of Encounter: 01/16/18 Objective PUL Vital signs: Last Vital Signs Temp 100 F H 01/16/18 08:00 Pulse 89 01/16/18 08:00 Resp 17 01/16/18 08:00 BP 96/45 01/16/18 08:00 Pulse Ox 99 01/16/18 08:00 Ventilator Settings Ventilator Settings: Ventilator Settings, Last 8 Hours Ventilator Tidal Volume 400 Setting Ventilator Tidal Volume 400 Setting Ventilator Tidal Volume 400 Setting Ventilator Tidal Volume 400 Setting Ventilator Tidal Volume 400 Setting Ventilator Tidal Volume 400 Setting Ventilator Tidal Volume 400 Setting Ventilator Tidal Volume 400 Setting Ventilator Tidal Volume 400 Setting Ventilator Tidal Volume 400 Setting Ventilator Tidal Volume 400 Setting Ventilator Tidal Volume 400 Setting Ventilator Respiratory Rate 12 Setting Ventilator Respiratory Rate 14 Setting Ventilator Respiratory Rate 14 Setting Ventilator Respiratory Rate 14 Setting Ventilator Respiratory Rate 14 Setting Ventilator Respiratory Rate 14 Setting Ventilator Respiratory Rate 14 Setting Ventilator Respiratory Rate 14 Setting Ventilator Respiratory Rate 14 Setting Ventilator Respiratory Rate 14 Setting Ventilator Respiratory Rate 14 Setting Ventilator Respiratory Rate 14 Setting Actual Respiratory Rate 18 Actual Respiratory Rate 20 Actual Respiratory Rate 19 Actual Respiratory Rate 23 Actual Respiratory Rate 18 Actual Respiratory Rate 16 Actual Respiratory Rate 19 Actual Respiratory Rate 19 Actual Respiratory Rate 17 Actual Respiratory Rate 16 Actual Respiratory Rate 16 Positive End Expiratory 5 Pressure Positive End Expiratory 5 Pressure Positive End Expiratory 5 Pressure Positive End Expiratory 5 Pressure Positive End Expiratory 5 Pressure Positive End Expiratory 5 Pressure Positive End Expiratory 5 Pressure Positive End Expiratory 5 Pressure Positive End Expiratory 5 Pressure Positive End Expiratory 5 Pressure Positive End Expiratory 5 Pressure Positive End Expiratory 5 Pressure Peak Inspiratory Airway 17 Pressure Peak Inspiratory Airway 17 Pressure Peak Inspiratory Airway 16 Pressure Peak Inspiratory Airway 17 Pressure Peak Inspiratory Airway 17 Pressure Peak Inspiratory Airway 17 Pressure Peak Inspiratory Airway 16 Pressure Peak Inspiratory Airway 17 Pressure Peak Inspiratory Airway 17 Pressure Peak Inspiratory Airway 18 Pressure Peak Inspiratory Airway 18 Pressure Results - Laboratory Findings CBC and BMP: 01/16/18 05:30 01/16/18 05:30 ABG ABG pH 7.52 pH Units (7.32-7.45) H 01/16/18 05:35 ABG pCO2 31 mmHg (35-45) L 01/16/18 05:35 ABG pO2 103 mmHg (85-104) 01/16/18 05:35 ABG O2 Saturation 99 % (95-98) H 01/16/18 05:35 Abnormal lab findings: Abnormal lab results RBC 3.43 M/mcL (4.19-5.50) L 01/16/18 05:30 Hgb 9.7 g/dL (12.9-16.9) L 01/16/18 05:30 Hct 32.7 % (37.5-50.1) L 01/16/18 05:30 MCHC 29.7 g/dL (31.6-35.5) L 01/16/18 05:30 RDW 18.4 % (11.5-14.5) H 01/16/18 05:30 Plt Count 105 K/mcL (140-400) L 01/16/18 05:30 MPV 13.8 fL (9.4-12.4) H 01/16/18 05:30 Nucleated RBCs/100 WBC 0.2 /100 WBC (0) H 01/16/18 05:30 ABG pH 7.52 pH Units (7.32-7.45) H 01/16/18 05:35 ABG pCO2 31 mmHg (35-45) L 01/16/18 05:35 ABG O2 Saturation 99 % (95-98) H 01/16/18 05:35 Sodium 135 mEq/L (136-145) L 01/16/18 05:30 Chloride 97 mEq/L (98-107) L 01/16/18 05:30 BUN 53 mg/dL (6-20) H 01/16/18 05:30 Creatinine 3.14 mg/dL (0.70-1.30) H 01/16/18 05:30 Est GFR ( Amer) 25 (> 60) L 01/16/18 05:30 Est GFR (Non-Af Amer) 21 (> 60) L 01/16/18 05:30 Glucose 201 mg/dL (70-105) H 01/16/18 05:30 POC Glucose 175 mg/dL (70-99) H 01/16/18 05:32 Calcium 8.2 mg/dL (8.6-10.3) L 01/16/18 05:30 Vancomycin Trough 22 mcg/mL (5-10) H 01/15/18 12:02 Enterobacteriac sp PCR DETECTED (Not Detect) A 01/15/18 16:00 Klebsiella pneumoniae DETECTED (Not Detect) A 01/15/18 16:00 - Microbiology Findings Microbiology Findings: Microbiology, Last 48 Hours 01/15/18 16:15 Blood Culture - Preliminary Central Venous Catheter Culture is incubating and being continuously monitored for growth. Final report to follow. 01/15/18 16:00 Blood Culture - Preliminary Central Venous Catheter Gram Negative Alex 01/15/18 12:10 Sputum Culture - Preliminary Aspirate - Clinical Findings Intake & Output: Intake & Output 01/15/18 01/16/18 01/16/18 23:59 07:59 15:59 Intake Total 838 / 838 216 / 216 Output Total 3855 / 3855 95 / 95 Balance -3017 / -3017 121 / 121 Weight 67.2 kg - Attending Attestation I examined this patient and my medical decision-making was reviewed with the Resident Physician. I agree with the documented findings, disposition and treatment plan as described except to the extent set forth below. Patient seen and examined. Labs, radiology, chart personally reviewed. Agree with resident's history and physical, assessment, plan with following comments: WIRE DROPPER: Patient does not follows commands, is not clear to me about his baseline. Will consider CT head Pulmonary: Acceptable oxygenation and ventilation. Changed vent setting due to respiratory alkalosis and component of metabolic alkalosis. Patient is trach dependant and on the vent. Cardiovascular: Patient remain hypotensive and in shock which his septic in nature. Patient has normal lactic acid level and reportedly his blood pressure is low for that reason MAP 60 mmHg. patient will need YUE and suspect vegetation. Cardiology is consulted. GI: Nutrition per dietary and GI prophylaxis per routine. Start trickle feed. Heme: DVT prophylaxis per routine ID: Continue antibiotics and plan to de-escalation. Change antibiotic to meropenium plus continuation of vancomycin. Patient will need ID consult. Removing the source it will be the wynn. Renal: catheter of HD is the source of infection and needs to be removed. Nephrology to make a decision regarding this. Endorcine: blood glucose is monitored Lines: all lines checked and no evidence of infections Skin: skin care to prevent pressure ulcers per nursing routine care Patient has extremely poor prognosis and palliative care to evaluate patient. Attempt to reach family. I spent 32 min of Critical Care time with this patient. It involved decision making of high complexity to assess, manipulate, and support vital organ system failure and/or to prevent further life threatening deterioration of the patient' s condition. The time involved in the performance of separately reportable procedures was not counted toward critical care time.
[2018-01-16] MEDS: Chlorhexidine Rinse 15 ML MOUTHWASH MM SCH ×2 (08:42→21:01)
[2018-01-16] MEDS: ARIPiprazole 5 MG TABLET GTUBE SCH (08:43)
[2018-01-16] MEDS: clonazePAM 0.5 MG TABLET GTUBE SCH ×3 (08:43→21:02)
[2018-01-16] MEDS: Famotidine 20 MG TABLET GTUBE SCH (08:43)
[2018-01-16] MEDS ORDERED: Meropenem 500 MG in Water for inj. (sterile) 20 ML 5 ML IVP SCH (10:00)
[2018-01-16] MEDS ORDERED: Vancomycin 1 EACH in 0.9 % Sodium Chloride 250 ML IVPB PRN (11:00)
--- NOTE | 2018-01-16 16:44 | Nephrology Progress Note ---
Date of Encounter: 01/16/18 Time of Encounter: 16:00 - Assessment and Plan (1) ESRD (end stage renal disease) Current Visit: Yes Status: Acute s/p HD yesterday, will reassess need for HD/UF tomorrow Hypotension problematic to adequate UF Limit obligate fluids if possible Can remove permcath given positive cultures, will need temp line before next HD (2) Septic shock Current Visit: Yes Status: Inactive Abx per primary team. Vanco by levels Agree with TTE and YUE if needed Ok with line removal (3) Volume overload Current Visit: Yes Status: Acute s/p successful UF yesterday on HD with pressor support and albumin with net uf of 3kg Qualifiers: Hypervolemia type: other Qualified Code(s): E87.79 - Other fluid overload Subjective Principal diagnosis: Septic shock Interval history: [place] noted, pt seen and examined s/p HD yesterday remainsing on pressor support on vent Objective - Vital Signs Vital signs: Vital Signs Temp Pulse Resp BP Pulse Ox 01/16/18 16:00 80 13 94/44 100 01/16/18 15:00 80 24 97/47 99 01/16/18 14:00 82 16 96/50 100 01/16/18 13:00 83 19 96/46 100 01/16/18 12:00 99.1 F 84 16 95/45 100 01/16/18 11:00 88 18 96/37 98 01/16/18 10:00 89 20 106/48 100 01/16/18 09:06 13 107/48 100 01/16/18 09:00 88 19 107/48 100 01/16/18 08:00 100 F H 89 17 96/45 99 01/16/18 07:20 18 96/45 100 01/16/18 07:00 80 20 97/46 100 01/16/18 06:22 17 101/45 100 01/16/18 06:00 87 23 99/46 100 01/16/18 05:00 86 18 88/47 100 01/16/18 04:13 15 110/45 100 01/16/18 04:00 90 19 112/48 100 01/16/18 03:00 71 19 111/46 100 01/16/18 02:45 99.8 F H 01/16/18 02:27 17 109/42 100 01/16/18 02:00 90 17 100/36 99 01/16/18 01:00 88 16 100/37 99 01/16/18 00:11 21 103/41 100 01/16/18 00:05 87 18 103/41 100 01/15/18 23:12 97.7 F 01/15/18 23:00 83 18 91/48 99 01/15/18 22:40 17 111/46 100 01/15/18 22:00 76 14 85/38 100 01/15/18 21:00 78 19 91/40 100 01/15/18 20:45 81 01/15/18 20:30 82 17 106/40 100 01/15/18 20:00 98.0 F 01/15/18 19:55 21 100 01/15/18 19:45 98 F 20 119/40 01/15/18 19:30 84 22 117/49 100 01/15/18 19:15 112/42 01/15/18 19:00 99/54 01/15/18 18:45 113/41 01/15/18 18:30 111/41 01/15/18 18:15 114/45 01/15/18 18:00 82 19 105/48 98 01/15/18 17:45 114/48 01/15/18 17:30 117/52 01/15/18 17:20 20 111/41 100 01/15/18 17:15 112/54 01/15/18 17:00 80 22 112/46 99 01/15/18 16:45 95/42 Intake and Output 01/16/18 01/16/18 01/16/18 07:59 15:59 23:59 Intake Total 216 / 216 254 / 254 Output Total 95 / 95 45 / 45 Balance 121 / 121 209 / 209 Intake: IV Fluids 216 / 216 254 / 254 Levophed 4 MG In Dextrose 5% 216 / 216 254 / 254 250 ML @ 5 MCG/MIN 19.05 mls/hr IVC CONT KAT Rx#:[id number] Output: Catheter 45 / 45 Gastric Drainage 80 / 80 Other: Weight 67.2 kg Blood Glucose* 175 146 Patient Weight 01/16/18 23:59 Weight 67.2 kg - Lab 01/16/18 05:30 01/16/18 05:30 Most recent lab results ABG pH 7.52 pH Units (7.32-7.45) H 01/16/18 05:35 ABG pCO2 31 mmHg (35-45) L 01/16/18 05:35 ABG pO2 103 mmHg (85-104) 01/16/18 05:35 ABG HCO3 25 mEq/L (21-27) 01/16/18 05:35 ABG O2 Saturation 99 % (95-98) H 01/16/18 05:35 Calcium 8.2 mg/dL (8.6-10.3) L 01/16/18 05:30 Consult Discharge Plan - Plan Referrals: Thomas Montero MD [Primary Care Provider] -
[2018-01-17] MEDS: Artificial Tears SOLN 15 ML BOTTLE BOTH EYES SCH ×6 (01:09→20:29)
[2018-01-17] MEDS: Insulin LISPRO 300 UNITS/3 ML VIAL SQ SCH ×4 (01:09→18:23)
[2018-01-17 02:29] LABS: Hepatitis B Surface Antibody 3105.81 mIU/mL
[2018-01-17 05:21] LABS: ABG Base Excess 1 mEq/L (-2 to 3); ABG HCO3 24 mEq/L (21-27); ABG Oxygen Saturation 98 % (95-98); ABG PCO2 32 mmHg (35-45); ABG PH 7.48 pH Units (7.32-7.45); ABG PO2 102 mmHg (85-104); ABG TCO2 25 mEq/L (20-26); Blood Gas Modality PRVC; Blood Gas PEEP 5 cm H2O; Blood Gas Respiration Rate 12; Blood Gas VT 400 cc
[2018-01-17 07:18] LABS: Basophils % 0.4 %; Eosinophils # 0.1 K/mcL (0.0-0.6); Eosinophils % 1.7 %; Hematocrit 32.5 % (37.5-50.1); Hemoglobin 9.6 g/dL (12.9-16.9); Immature Granulocytes % 0.5 % (0-4); Lymphocytes # 1.3 K/mcL (0.6-4.6); Lymphocytes % 15.4 %; Mean Corpuscular HGB Conc 29.5 g/dL (31.6-35.5); Mean Corpuscular Volume 94.8 fL (83.0-100.0); Mean Platelet Volume 13.6 fL (9.4-12.4); Monocytes # 0.7 K/mcL (0.0-1.3); Monocytes % 7.9 %; Neutrophils # 6.3 K/mcL (1.6-8.9); Nucleated Red Blood Cells 0.4 /100 WBC (0); Platelet Count 107 K/mcL (140-400); Red Blood Count 3.43 M/mcL (4.19-5.50); Red Cell Distribution Width 18.3 % (11.5-14.5); Segmented Neutrophils % 74.1 %
[2018-01-17 07:24] LABS: Calcium 8.1 mg/dL (8.6-10.3); Potassium 3.8 mEq/L (3.5-5.1)
[2018-01-17] MEDS: *HR* Heparin 5,000 UNIT/ML VIAL SQ SCH ×3 (07:48→20:36)
[2018-01-17] MEDS: Chlorhexidine Rinse 15 ML MOUTHWASH MM SCH ×2 (09:58→20:35)
[2018-01-17] MEDS: clonazePAM 0.5 MG TABLET GTUBE SCH ×3 (09:58→20:36)
[2018-01-17] MEDS: Famotidine 20 MG TABLET GTUBE SCH (09:58)
[2018-01-17] MEDS: ARIPiprazole 5 MG TABLET GTUBE SCH (09:58)
--- NOTE | 2018-01-17 10:37 | IR Procedure Note ---
Date of procedure: 01/17/18 Consent Obtained: Written consent Timeout: Correct patient and procedure verified, Time out performed, Skin prep completed Local anesthetic: Lidocaine 1% Indications: Sepsis Procedure Performed: Removal tunneled dialysis catheter Was there an economist research assistant present: No Results/Findings: Removal TDC Estimated blood loss (cc): 0 Complications: None; Tolerated procedure well Post Procedure Treatment Plan: Monitor on floor Specimen: Tip sent
--- NOTE | 2018-01-17 11:08 | Pulmonology Progress Note ---
<Buster Sherman - Last Filed: 01/17/18 13:20> Date of Encounter: 01/17/18 Time of Encounter: 11:43 Assessment and Plan (1) Septic shock Current Visit: Yes Status: Acute Patient persistently hypotensive with most recent blood pressure 101/46. Currently on 5 mcg/m of norepinephrine drip Goals to maintain MAP of 60 in order to maintain adequate tissue perfusion Patient lactic acid found to be normal at 2.1 Patient is currently receiving vancomycin and levofloxacin for MRSA and gram- negative alex coverage Continue to monitor (2) ESRD (end stage renal disease) Current Visit: Yes Status: Acute Patient has recent (2 month) history of end-stage renal disease Patient scheduled for Wednesday, Wednesday hemodialysis Nephrology consult obtained and is following HD catheter shows Klebsiella bacteria growth-IR removed tunneled catheter on January 17, culture of catheter tip is pending Plan to schedule for insertion of temporary dialysis catheter for continuation of hemodialysis (3) MRSA bacteremia Current Visit: Yes Status: Acute Patient with positive blood culture on 01/12 showing MRSA bacteremia Patient's sputum culture as well as culture of HD catheter revealed gram- negative rods Potential source of MRSA likely due to chronic endocarditis Continue vancomycin for MRSA coverage ID consult placed (4) Chronic endocarditis Current Visit: Yes Status: Acute Patient history 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-subsequent medical management with IV antibiotics and oral Keflex Patient has [id number] aortic insufficiency and moderate tricuspid regurgitation as well as mild mitral regurgitation-harsh, blowing systolic murmur 3/6 noted in the fourth intercostal space left sternal border Cardiology is consulted and is following TTE nondiagnostic, per cardiology recommendation YUE inappropriate at this time Patient is unlikely to be a good candidate for valve replacement given his current condition Palliative care consult to be placed per cardiology Per palliative care, family is requesting patient be transferred to [facility] Palliative care will discuss possible transfer in addition to goals of care with patient's family in conjunction with critical care/pulmonology team Qualifiers: Endocarditis type: infective Infective endocarditis organism: bacterial Qualified Code(s): I33.0 - Acute and subacute infective endocarditis (5) Type 2 diabetes mellitus Current Visit: Yes Status: Acute Patient is currently receiving a low dose sliding scale insulin regimen POC glucose shows well controlled Continue to monitor Qualifiers: Diabetes mellitus keno terminal operator insulin use: with alf use Diabetes mellitus complication status: with kidney complications Diabetes mellitus complication detail: with chronic kidney disease Chronic kidney disease stage : on chronic dialysis Qualified Code(s): E11.22 - Type 2 diabetes mellitus with diabetic chronic kidney disease; N18.6 - End stage renal disease; Z79.4 - adjunct faculty for medical 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 Patient was a transfer from the [place] emergency department for MRSA bacteremia which was discovered after patient was found to have a fever on January 12 at his retirement and the [facility]. Blood cultures drawn at the [facility] revealed MRSA bacteremia and the patient was subsequently started on vancomycin and Zosyn. Patient blood cultures have since shown MRSA bacteremia of the blood as well as Klebsiella infection of his HD catheter. Patient was initially switched from Zosyn to meropenem for coverage of gram- negative rods and today stopped meropenem for levofloxacin 500 mg daily. Per nurse staff, there have been no acute events overnight, patient remains unresponsive to physical exam-head CT performed yesterday showed no acute abnormalities. Patient's brother who is power of jewel flat surfacer consented yesterday in person to YUE study as well as removal of tunneled HD catheter and placement of temporary HD line. Objective PUL Vital signs: Last Vital Signs Temp 98.1 F 01/17/18 07:50 Pulse 79 01/17/18 10:00 Resp 22 01/17/18 10:00 BP 94/43 01/17/18 10:00 Pulse Ox 99 01/17/18 10:00 General appearance: no acute distress, other (Patient opens his eyes spontaneously but otherwise does not respond to verbal stimuli) Eyes: nonicteric ENT: oropharynx moist Effort: normal Auscultation: bilateral: rhonchi Cardiovascular: regular rate and rhythm, murmur noted (There is a harsh sounding , blowing 3/6 systolic murmur noted at the fourth intercostal space on the left of the sternal border) Gastrointestinal: normoactive bowel sounds, soft, non-tender (Patient does not grimace to abdominal palpation), non-distended Ventilator Settings Ventilator Settings: Ventilator Settings, Last 8 Hours Ventilator Tidal Volume 400 Setting Ventilator Tidal Volume 400 Setting Ventilator Tidal Volume 400 Setting Ventilator Tidal Volume 400 Setting Ventilator Tidal Volume 400 Setting Ventilator Tidal Volume 400 Setting Ventilator Tidal Volume 400 Setting Ventilator Tidal Volume 400 Setting Ventilator Tidal Volume 400 Setting Ventilator Tidal Volume 400 Setting Ventilator Tidal Volume 400 Setting Ventilator Respiratory Rate 12 Setting Ventilator Respiratory Rate 12 Setting Ventilator Respiratory Rate 12 Setting Ventilator Respiratory Rate 12 Setting Ventilator Respiratory Rate 12 Setting Ventilator Respiratory Rate 12 Setting Ventilator Respiratory Rate 12 Setting Ventilator Respiratory Rate 12 Setting Ventilator Respiratory Rate 12 Setting Ventilator Respiratory Rate 12 Setting Ventilator Respiratory Rate 12 Setting Actual Respiratory Rate 22 Actual Respiratory Rate 16 Actual Respiratory Rate 20 Actual Respiratory Rate 18 Actual Respiratory Rate 12 Actual Respiratory Rate 15 Actual Respiratory Rate 14 Actual Respiratory Rate 14 Actual Respiratory Rate 14 Positive End Expiratory 5 Pressure Positive End Expiratory 5 Pressure Positive End Expiratory 5 Pressure Positive End Expiratory 5 Pressure Positive End Expiratory 5 Pressure Positive End Expiratory 5 Pressure Positive End Expiratory 5 Pressure Positive End Expiratory 5 Pressure Positive End Expiratory 5 Pressure Positive End Expiratory 5 Pressure Positive End Expiratory 5 Pressure Peak Inspiratory Airway 15 Pressure Peak Inspiratory Airway 11 Pressure Peak Inspiratory Airway 15 Pressure Peak Inspiratory Airway 16 Pressure Peak Inspiratory Airway 16 Pressure Peak Inspiratory Airway 16 Pressure Peak Inspiratory Airway 16 Pressure Results - Laboratory Findings CBC and BMP: 01/17/18 06:49 01/17/18 06:49 ABG ABG pH 7.48 pH Units (7.32-7.45) H 01/17/18 05:15 ABG pCO2 32 mmHg (35-45) L 01/17/18 05:15 ABG pO2 102 mmHg (85-104) 01/17/18 05:15 ABG O2 Saturation 98 % (95-98) 01/17/18 05:15 Abnormal lab findings: Abnormal lab results RBC 3.43 M/mcL (4.19-5.50) L 01/17/18 06:49 Hgb 9.6 g/dL (12.9-16.9) L 01/17/18 06:49 Hct 32.5 % (37.5-50.1) L 01/17/18 06:49 MCHC 29.5 g/dL (31.6-35.5) L 01/17/18 06:49 RDW 18.3 % (11.5-14.5) H 01/17/18 06:49 Plt Count 107 K/mcL (140-400) L 10/01/18 06:49 MPV 13.6 fL (9.4-12.4) H 01/17/18 06:49 Nucleated RBCs/100 WBC 0.4 /100 WBC (0) H 01/17/18 06:49 ABG pH 7.48 pH Units (7.32-7.45) H 01/17/18 05:15 ABG pCO2 32 mmHg (35-45) L 01/17/18 05:15 Sodium 135 mEq/L (136-145) L 01/17/18 06:49 BUN 65 mg/dL (6-20) H 01/17/18 06:49 Creatinine 3.77 mg/dL (0.70-1.30) H 01/17/18 06:49 Est GFR ( Amer) 20 (> 60) L 01/17/18 06:49 Est GFR (Non-Af Amer) 17 (> 60) L 01/17/18 06:49 Glucose 182 mg/dL (70-105) H 01/17/18 06:49 POC Glucose 140 mg/dL (70-99) H 01/17/18 05:22 Calculated Osmolality 303 (280-300) H 01/17/18 06:49 Calcium 8.1 mg/dL (8.6-10.3) L 01/17/18 06:49 Vancomycin Trough 22 mcg/mL (5-10) H 01/15/18 12:02 Enterobacteriac sp PCR DETECTED (Not Detect) A 01/15/18 16:00 Klebsiella pneumoniae DETECTED (Not Detect) A 01/15/18 16:00 - Microbiology Findings Microbiology Findings: Microbiology, Last 48 Hours 01/15/18 16:00 Blood Culture - Preliminary Central Venous Catheter Gram Negative Alex 01/15/18 12:10 Sputum Culture - Preliminary Aspirate 01/15/18 16:15 Blood Culture - Preliminary Central Venous Catheter Culture is incubating and being continuously monitored for growth. Final report to follow. - Clinical Findings Intake & Output: Intake & Output 01/16/18 01/17/18 01/17/18 23:59 07:59 15:59 Intake Total 5 / 5 0 / 0 Output Total 40 / 40 100 / 100 Balance -35 / -35 -100 / -100 Weight 65.09 kg Consult Discharge Plan - Plan Referrals: Thomas Montero MD [Primary Care Provider] - <Aaron Steele - Last Filed: 01/17/18 15:14> Date of Encounter: 01/17/18 Objective PUL Vital signs: Last Vital Signs Temp 98.3 F 01/17/18 11:48 Pulse 80 01/17/18 14:00 Resp 20 01/17/18 14:00 BP 96/52 01/17/18 14:00 Pulse Ox 100 01/17/18 14:00 Ventilator Settings Ventilator Settings: Ventilator Settings, Last 8 Hours Ventilator Tidal Volume 400 Setting Ventilator Tidal Volume 400 Setting Ventilator Tidal Volume 400 Setting Ventilator Tidal Volume 400 Setting Ventilator Tidal Volume 400 Setting Ventilator Tidal Volume 400 Setting Ventilator Tidal Volume 400 Setting Ventilator Tidal Volume 400 Setting Ventilator Tidal Volume 400 Setting Ventilator Respiratory Rate 12 Setting Ventilator Respiratory Rate 12 Setting Ventilator Respiratory Rate 12 Setting Ventilator Respiratory Rate 12 Setting Ventilator Respiratory Rate 12 Setting Ventilator Respiratory Rate 12 Setting Ventilator Respiratory Rate 12 Setting Ventilator Respiratory Rate 12 Setting Ventilator Respiratory Rate 12 Setting Actual Respiratory Rate 20 Actual Respiratory Rate 18 Actual Respiratory Rate 18 Actual Respiratory Rate 19 Actual Respiratory Rate 22 Actual Respiratory Rate 16 Actual Respiratory Rate 20 Actual Respiratory Rate 18 Actual Respiratory Rate 12 Positive End Expiratory 5 Pressure Positive End Expiratory 5 Pressure Positive End Expiratory 5 Pressure Positive End Expiratory 5 Pressure Positive End Expiratory 5 Pressure Positive End Expiratory 5 Pressure Positive End Expiratory 5 Pressure Positive End Expiratory 5 Pressure Positive End Expiratory 5 Pressure Peak Inspiratory Airway 16 Pressure Peak Inspiratory Airway 26 Pressure Peak Inspiratory Airway 15 Pressure Peak Inspiratory Airway 11 Pressure Peak Inspiratory Airway 15 Pressure Results - Laboratory Findings CBC and BMP: 01/17/18 06:49 01/17/18 06:49 ABG ABG pH 7.48 pH Units (7.32-7.45) H 01/17/18 05:15 ABG pCO2 32 mmHg (35-45) L 01/17/18 05:15 ABG pO2 102 mmHg (85-104) 01/17/18 05:15 ABG O2 Saturation 98 % (95-98) 01/17/18 05:15 Abnormal lab findings: Abnormal lab results RBC 3.43 M/mcL (4.19-5.50) L 01/17/18 06:49 Hgb 9.6 g/dL (12.9-16.9) L 01/17/18 06:49 Hct 32.5 % (37.5-50.1) L 01/17/18 06:49 MCHC 29.5 g/dL (31.6-35.5) L 01/17/18 06:49 RDW 18.3 % (11.5-14.5) H 01/17/18 06:49 Plt Count 107 K/mcL (140-400) L 01/17/18 06:49 MPV 13.6 fL (9.4-12.4) H 01/17/18 06:49 Nucleated RBCs/100 WBC 0.4 /100 WBC (0) H 01/17/18 06:49 ABG pH 7.48 pH Units (7.32-7.45) H 01/17/18 05:15 ABG pCO2 32 mmHg (35-45) L 01/17/18 05:15 Sodium 135 mEq/L (136-145) L 01/17/18 06:49 BUN 65 mg/dL (6-20) H 01/17/18 06:49 Creatinine 3.77 mg/dL (0.70-1.30) H 01/17/18 06:49 Est GFR ( Amer) 20 (> 60) L 01/17/18 06:49 Est GFR (Non-Af Amer) 17 (> 60) L 01/17/18 06:49 Glucose 182 mg/dL (70-105) H 01/17/18 06:49 POC Glucose 217 mg/dL (70-99) H 01/17/18 11:22 Calculated Osmolality 303 (280-300) H 01/17/18 06:49 Calcium 8.1 mg/dL (8.6-10.3) L 01/17/18 06:49 Vancomycin Trough 22 mcg/mL (5-10) H 01/15/18 12:02 Enterobacteriac sp PCR DETECTED (Not Detect) A 01/15/18 16:00 Klebsiella pneumoniae DETECTED (Not Detect) A 01/15/18 16:00 - Microbiology Findings Microbiology Findings: Microbiology, Last 48 Hours 01/17/18 13:18 Blood Culture - Preliminary Peripheral Venipuncture Culture is incubating and being continuously monitored for growth. Final report to follow. 01/17/18 13:18 Blood Culture - Preliminary Peripheral Venipuncture Culture is incubating and being continuously monitored for growth. Final report to follow. 01/15/18 12:10 Sputum Culture - Preliminary Aspirate Gram Negative Alex Gram Negative Alex#2 01/15/18 16:00 Blood Culture - Preliminary Central Venous Catheter Gram Negative Alex 01/15/18 16:15 Blood Culture - Preliminary Central Venous Catheter Culture is incubating and being continuously monitored for growth. Final report to follow. - Clinical Findings Intake & Output: Intake & Output 01/16/18 01/17/18 01/17/18 23:59 07:59 15:59 Intake Total 5 / 5 0 / 0 Output Total 40 / 40 100 / 100 50 / 50 Balance -35 / -35 -100 / -100 -50 / -50 Weight 65.09 kg - Attending Attestation I saw and evaluated this patient and my medical decision-making was reviewed with the Resident Physician. I agree with the documented findings, disposition and treatment plan as described except to the extent set forth below. We independently had [id number] contact with the patient I spent 40 minutes of Critical Care time with this patient. It involved decision making of high complexity to assess, manipulate, and support vital organ system failure and/or to prevent further life threatening deterioration of the patient's condition. The time involved in the performance of separately reportable procedures was not counted toward critical care time. Patient seen and examined at bedside Labs, radiology, chart personally reviewed. Management was reviewed during multidisciplinary critical care rounds. QUARRY MANAGER: Patient had previous stroke in the past QUARRY MANAGER imaging shows subacute an old stroke with no acute intracranial bleed patient neurological examination most likely at baseline. Pulm: Patient has acceptable oxygenation and ventilation not much V/Q mismatch patient has chronic ventilator dependent to continue the current settings. Cards: Patient is in septic shock secondary to MRSA bacteremia with blood cultures no clinical stigmata for endocarditis the patient had previous endocarditis with current TTE cannot rule out vegetation YUE was considered since patient will do a poor lady with open-heart surgery for possible valve replacement if at we found out valve abscess.. We will titrate down the vasopressor requirement. Patient family wants a second opinion wants transfer to [facility] FEN-GI: Diet according to nutrition. Renal: End-stage renal disease on dialysis nephrology following ID: Should not has this MRSA bacteremia most likely from the dialysis catheter which was removed today will continue broad-spectrum antibiotics will repeat blood cultures appreciate ID recommendations. Heme/Onc: Any prophylaxis. Endo: Glucose Monitored Integ/MSK: Skin Care per routine ICU Nursing Protocol to prevent ulcers. Lines: All lines examined without evidence of infection : Dispo: Critically ill CODE: Full Code
--- NOTE | 2018-01-17 11:29 | Cardiology Progress Note ---
Date of Encounter: 01/17/18 Time of Encounter: 11:26 Assessment and Plan (1) Chronic endocarditis Current Visit: Yes Status: Acute Patient diagnosed with abscess and vegetation MSSA on AV in September [address] [facility]. Thought to be secondary to tooth abscess per brother. S/p two rounds IV antibiotic and on chronic keflex. TTE completed during stay LVEF 55-60%. Normal LV systolic function. Mildly dilated left ventricle. Mild left ventricular diastolic dysfunction. Mild right ventricular hypokinesis. Mildly dilated right ventricle. Mildly dilated left atrium and right atrium. Mild aortic stenosis. Moderate-severe aortic regurgitation. Cannot rule out vegetation given chronic calcified leaflets ho infective endocarditis. Mild mitral regurgitation. Moderate-severe tricuspid regurgitation. Severe pulmonary hypertension. YUE considered to r/o continued vegetations/ abcess. Discussed with Dr Batres and primary team, patient with multiple co-morbidities s/p recent CVA , ESRD on dialysis, chronic trach. Not clear if mental status changes are reversible? Non- purposeful movement. Likely poor candidate for OHS. Also deemed poor candidate when evaluated in September per brother. Hold off on YUE. I discussed with his brother, Tristian Rivas, who agrees. Recommend palliative care consult. Qualifiers: Qualified Code(s): I33.0 - Acute and subacute infective endocarditis (2) Aortic regurgitation Current Visit: Yes Status: Acute Know moderate -severe aortic regurgitation secondary to endocarditis. Repeated TTE similar to previous. See plan above. Qualifiers: Qualified Code(s): I35.1 - Nonrheumatic aortic (valve) insufficiency Discussion w patient/family: The assessment and plan as outlined above was discussed with the patient and/or family members who expressed understanding and agreement. All questions were answered. Thank you for involving us in the care of your patient. Please call with any questions. Subjective Principal diagnosis: Septic shock Interval history: Pt remains on ventilator via trach. Blinking his eyes. No other purposeful movements noted. Brother who is NOK did present to hospital and consent given for YUE. Noted that CT completed. Objective Vital Signs, Last 4 Hours Temp Pulse Resp BP Pulse Ox 01/17/18 10:00 79 22 94/43 99 01/17/18 09:33 16 100 01/17/18 09:00 75 20 110/49 99 01/17/18 08:00 78 21 91/47 99 01/17/18 07:50 98.1 F General: No Apparent Distress HEENT: Atraumatic, Normocephaly, Mucus Membranes Moist Neck: No JVD, Normal carotid pulses Cardiac: Reg Rate and Rhythm, Normal S1 and S2, Other (2/6 systolic murmur) Lungs: Other (Tacheostomy intact) Neuro: Other (Only blinking eyes, no other purposeful movement) Abdomen: Soft, Non-Tender Skin: No rashes noted on visualized skin Musculoskeletal: No Chest Wall Tenderness Extremities: No Clubbing, No Cyanosis, No Edema, Normal Pulses Results 01/17/18 06:49 01/17/18 06:49 Lab Results 01/17/18 01/17/18 06:49 06:49 WBC 8.5 Hgb 9.6 L Hct 32.5 L Plt Count 107 L Sodium 135 L Potassium 3.8 Chloride 98 Carbon Dioxide 23 BUN 65 H Creatinine 3.77 H Glucose 182 H Calcium 8.1 L - Imaging and Cardiology Echo: report reviewed - EKG Interpretation EKG results cardiology: personally reviewed Consult Discharge Plan - Plan Referrals: Thomas Montero MD [Primary Care Provider] -
[2018-01-17] MEDS ORDERED: Levofloxacin 500 MG/100 ML 500 MG/100 ML BAG IVPB ONE (12:00)
[2018-01-17] MEDS ORDERED: Ondansetron 4 MG/2 ML VIAL IVP PRN (12:21)
--- NOTE | 2018-01-17 13:55 | Nephrology Progress Note ---
Date of Encounter: 01/17/18 Time of Encounter: 12:00 - Assessment and Plan (1) ESRD (end stage renal disease) Current Visit: Yes Status: Acute (2) Septic shock Current Visit: Yes Status: Inactive (3) Volume overload Current Visit: Yes Status: Acute Qualifiers: Hypervolemia type: other Qualified Code(s): E87.79 - Other fluid overload Subjective Principal diagnosis: Septic shock Interval history: Interim noted, pt seen and examined pressor support on vent awake with eys open but not communicating much. Objective - Vital Signs Vital signs: Vital Signs Temp Pulse Resp BP Pulse Ox 01/17/18 12:00 81 17 101/46 99 01/17/18 11:48 98.3 F 01/17/18 11:28 18 99 01/17/18 11:00 85 01/17/18 10:00 79 22 94/43 99 01/17/18 09:33 16 100 01/17/18 09:00 75 20 110/49 99 01/17/18 08:00 78 21 91/47 99 01/17/18 07:50 98.1 F 01/17/18 07:22 19 100 01/17/18 07:00 80 01/17/18 05:29 77 13 94/45 01/17/18 05:15 15 94/45 100 01/17/18 05:00 78 14 94/45 01/17/18 04:00 80 14 92/46 01/17/18 03:33 98.6 F 01/17/18 03:09 18 89/47 98 01/17/18 03:00 80 12 89/47 01/17/18 02:07 90 01/17/18 02:00 86 12 107/48 99 01/17/18 01:06 16 106/48 98 01/17/18 01:00 87 20 106/48 98 01/17/18 00:46 98.6 F 01/17/18 00:00 87 20 106/48 99 01/16/18 23:03 14 99 01/16/18 23:00 88 21 103/46 99 01/16/18 22:13 90 01/16/18 22:00 89 17 94/44 100 01/16/18 21:44 17 97/45 100 01/16/18 21:00 87 16 103/64 99 01/16/18 20:05 99.2 F 01/16/18 19:51 16 106/45 100 01/16/18 19:00 90 18 104/46 100 01/16/18 18:00 82 19 100/43 100 01/16/18 17:45 16 106/45 100 01/16/18 17:00 80 19 93/44 99 01/16/18 16:00 99.0 F 80 13 94/44 100 01/16/18 15:37 14 106/45 99 01/16/18 15:00 88 24 97/47 99 01/16/18 14:00 82 16 96/50 100 Intake and Output 01/16/18 01/17/18 01/17/18 23:59 07:59 15:59 Intake Total 5 / 5 0 / 0 Output Total 40 / 40 100 / 100 50 / 50 Balance -35 / -35 -100 / -100 -50 / -50 Intake: IV Fluids 5 / 5 Merrem 500 MG In Water for inj. 5 / 5 (sterile) 5 ML @ 100 mls/hr IVP Q24H [facility] Rx#:[id number] Oral 0 / 0 Output: Catheter / / 100 50 / 50 Other: Weight 65.09 kg Blood Glucose* 230 140 217 Patient Weight 01/17/18 23:59 Weight 65.09 kg - Lab 01/17/18 06:49 01/17/18 06:49 Most recent lab results ABG pH 7.48 pH Units (7.32-7.45) H 01/17/18 05:15 ABG pCO2 32 mmHg (35-45) L 01/17/18 05:15 ABG pO2 102 mmHg (85-104) 01/17/18 05:15 ABG HCO3 24 mEq/L (21-27) 01/17/18 05:15 ABG O2 Saturation 98 % (95-98) 01/17/18 05:15 Calcium 8.1 mg/dL (8.6-10.3) L 01/17/18 06:49 Consult Discharge Plan - Plan Referrals: Thomas Montero MD [Primary Care Provider] -
--- NOTE | 2018-01-17 14:00 | Palliative - Consult Note ---
Date of Encounter: 01/17/18 Time of Encounter: 12:50 - Assessment and Plan (1) Goals of care, counseling/discussion Current Visit: Yes Status: Acute Assessment and plan: Called brother Tristian Rivas #[phone] and discussed patients condition. Patient with history of CVA and is nonverbal at baseline and only displays purposeful movements. Patient with chronic tracheostomy and currently on the vent at AC, 30% FiO2, TV 400 and Peep 5. Thick white secretions in suction tubing. Patient resting calmly. Explained that patient has multiple co-morbid conditions and Cardiology team feels that patient is not a good candidate at present for YUE. Tristian and his Margaret on the phone desire for patient to be transferred to [facility] for second opinion on prognosis. 1405 - I discussed case with Dr. Steele and he will make arrangements for transfer. Patient remains full code per NOK and POA request. Plan for patient to DC to [facility] when bed is available. 1445 - Called Tristian to inform him of pending transfer. (2) Chronic endocarditis Current Visit: Yes Status: Acute Assessment and plan: Cardiology is following patient. Canceled YUE based on patient overall poor prognosis and multiple co-morbid conditions. Qualifiers: Endocarditis type: infective Infective endocarditis organism: bacterial Qualified Code(s): I33.0 - Acute and subacute infective endocarditis (3) ESRD (end stage renal disease) Current Visit: Yes Status: Acute Assessment and plan: Nephrology following. Patient excretes minimal urine. Zamudio catheter in place. (4) MRSA bacteremia Current Visit: Yes Status: Acute Assessment and plan: Patient continues on vasopressor support. Antibiotics Levaquin and Vancomycin ordered. Patient on MSSA precautions. Palliative-CN HPI - Data of Consult Patient: new to practice Consult date: 01/17/18 Requesting Physician: Cyrus Joyner CNP Primary Care Provider: Thomas Montero MD - Consult Narrative Palliative Care/Comfort Measures: Palliative care Reason for consult: Goals of Care History of present illness: Mr. Rivas is a 57 year old male that has tracheostomy, end-stage renal disease presented from [facility] emergency department for MRSA bacteremia. Blood cultures were drawn at the correction and he was found to have MRSA bacteremia and started on vancomycin, Zosyn. Urine culture was also collected but patient makes minimal urine. Upon arrival to [place] patient is known to be nonverbal which is his baseline. Patient has a history of acute CVA as per correction records. He has a acute left temporal and bilateral occipital lobe infarction with residual left hemiparesis and dysarthria.He opens his eyes spontaneously. He does not interact. Patient continues to be hypotensive and is receiving vasopressor support. From correction records patient has a history of MSSA bacteremia with aortic valve endocarditis. 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 Patient was admitted to on 09/17/2017 where he had a 87 day stay and ended up being put on tracheostomy and became HD dependent. He again had a YUE which showed aortic valve vegetations and he was continued on chronic Keflex by infectious disease. The patients brother is Justin. Tristian Rivas #. Cardiology saw the patient and given the patients overall co-morbid conditions, poor baseline functional status canceled the YUE and consulted palliative to establish goals of care. CC: Candy Parmar MD - Time Spent with Patient Time: Total time spent is greater than 50% in coordination of care (as documented) at patient's floor/unit and/or counseling patient: Greater than 35 minutes Past Med Surg Social Fam HX - Past Medical History Source: old records reviewed, obtained from family, nursing notes reviewed Medical history: atrial fibrillation, diabetes, renal disease Additional medical history: MRSA, SEPSIS DUE TO MRSA, ANEMIA, V-TACH, RETENTION OF URINE Psychiatric history: depression, schizophrenia - Social History Smoking Status: Unknown if ever smoked Smokeless Tobacco Status: No (UNKNOWN) Alcohol use: unknown Drug use: unknown Occupational status: disabled Current living situation: ECF Activity Level: Bed bound Recent Out of Country Travel Within the Last 8 Weeks: No Exposure or Possible Exposure to Illness During Travel: No - Family History Mother History Unknown: Yes Father History Unknown: Yes Medications and Allergies Acetaminophen [Arthritis Pain Relief] 650 mg GTUBE Q6H PRN 01/15/18 [History] Albuterol Neb [Proventil Neb] 2.5 mg IH Q6HR 01/15/18 [History] Amino Acids/Protein Hydrolys [Pro-Stat Awc Liquid] 30 ml GTUBE BID 01/15/18 [ History] Aripiprazole [Abilify] 5 mg GTUBE QDPC 01/15/18 [History] Aspirin [Lo-Dose Aspirin EC] 81 mg GTUBE QAM 01/15/18 [History] Atorvastatin [Lipitor] 40 mg GTUBE HS 01/15/18 [History] Benztropine Mesylate 0.5 mg GTUBE QAM 01/15/18 [History] Chlorhexidine Gluconate [Peridex] 15 ml MM BID 01/15/18 [History] Famotidine [Heartburn Prevention] 20 mg GTUBE QAM 01/15/18 [History] Folic Acid 1 mg GTUBE DAILY 01/15/18 [History] Folic Acid/Vit Bcomp,C [Renal-Ronald Tablet] 0.8 mg GTUBE QAM 01/15/18 [History] Gabapentin [Neurontin] 100 mg GTUBE TID 01/15/18 [History] Insulin Glargine,Hum.rec.anlog [Basaglar Kwikpen U-100] 14 unit SQ HS 01/15/18 [ History] Insulin LISPRO [Admelog Solostar] 0 - 12 unit SQ Q6H 01/15/18 [History] Metoclopramide HCl 5 mg PO BID 01/15/18 [History] Midodrine HCl 10 mg GTUBE BID 01/15/18 [History] Ondansetron HCl [Zofran] 4 mg GTUBE Q6H PRN 01/15/18 [History] OxyCODONE Immed Rel [Roxicodone 5 MG] 5 mg GTUBE Q8HR PRN 01/15/18 [History] Polyethylene Glycol 3350 [MiraLAX] 17 gm GTUBE DAILY PRN 01/15/18 [History] Thiamine (B-1) [Vitamin B-1] 250 mg GTUBE DAILY 01/15/18 [History] clonazePAM [Clonazepam] 0.5 mg GTUBE TID 01/15/18 [History] 3 Allergy/AdvReac Type Severity Reaction Status Date / Time No Known Allergies Allergy Verified 01/15/18 03:27 ROS unobtainable: due to mental status (Patient nonverbal, nonpurposeful movements only. ) - Constitutional Constitutional ROS PAL: chills, fatigue - Cardiovascular Cardiovascular ROS: pedal edema - Respiratory Additional comments: Chronic trachesotomy - Genitourinary Genitourinary ROS male: other (Chronic ESRD, chronic zamudio catheter with scant urine. Patient on HD) - Musculoskeletal Musculoskeletal ROS IM: muscle weakness Palliative Care-Exam - Constitutional Vitals: Temp Pulse Resp BP Pulse Ox 98.3 F 81 17 101/46 99 01/17/18 11:48 01/17/18 12:00 01/17/18 12:00 01/17/18 12:00 01/17/18 12:00 General appearance: Present: no acute distress - Head Head Exam: Present: atraumatic, normal inspection, normocephalic - Eye Eye exam: Present: PERRL - ENT ENT exam: Present: mucous membranes moist - Expanded ENT Exam Mouth Exam: Present: moist - Neck Additional comments: Tracheostomy in place - Respiratory Respiratory exam: Present: decreased breath sounds - Expanded Respiratory Exam Location: decreased breath sounds: Left, Right, Lower - Cardiovascular Cardiovascular exam: Present: diastolic murmur, rubs, +S1, +S2 - Expanded Cardiovascular Exam Intensity: 3/6 Peripheral pulses: 1+: Femoral (L) PM, Femoral (R) PM, Posterior Tibialis (L), Posterior Tibialis (R), Dorsalis Pedis (L) PM, Dorsalis Pedis (R) PM, 2+: Carotid (L) PM, Carotid (R) PM, Radial (L), Radial (R) - GI/Abdominal Exam GI/Abdominal exam: Present: normal bowel sounds, soft additional comments: Peg tube in place. Feedings in progress - Rectal Rectal Exam: Present: deferred - Catheter Type: Urethral (Zamudio) Additional comments: Scant yellow urine - Extremities Exam Extremities exam: Present: pedal edema (3 -4 + pitting edema to arms and legs) - Expanded Upper Extremities Exam General: Present: normal inspection - Expanded Neurological Exam Neurological exam expanded: Present: inattentive Speech: Present: total aphasia Cranial nerves: gag reflex: Normal Coma Scale Eye Opening: To Voice Coma Scale Motor Response: None Coma Scale Verbal Response: Incomprehensible Coma Scale Total: 6 - Psychiatric Psychiatric exam: Present: flat affect Additional comments: Patient with history of CVA. Non-purposeful movements. Nonverbal. Fails to follow any commands. Bilateral upper and lower extremities weak. - Skin Skin exam: Present: normal color Internal Medicine - CN: Reslt - Labs CBC & Chem 7: 01/17/18 06:49 01/17/18 06:49 Labs: Short CBC 01/17/18 Range/Units 06:49 WBC 8.5 (4.3-11.1) K/mcL Hgb 9.6 L (12.9-16.9) g/dL Hct 32.5 L (37.5-50.1) % Plt Count 107 L (140-400) K/mcL Neutrophils # 6.3 (1.6-8.9) K/mcL BMP 01/17/18 06:49 Sodium 135 L Potassium 3.8 Chloride 98 Carbon Dioxide 23 BUN 65 H Creatinine 3.77 H Glucose 182 H Calcium 8.1 L - ABG Interpretation ABG results: ABG ABG pH 7.48 pH Units (7.32-7.45) H 01/17/18 05:15 ABG pCO2 32 mmHg (35-45) L 01/17/18 05:15 ABG pO2 102 mmHg (85-104) 01/17/18 05:15 ABG O2 Saturation 98 % (95-98) 01/17/18 05:15 - Impressions Impressions Head CT 01/16/18 09:53 IMPRESSION: 1. No acute intracranial hemorrhage or mass. 2. Age-indeterminate foci of low attenuation within the right parietal and left occipital lobes, most likely subacute to chronic infarcts. However, acute ischemic change is not excluded. Consider further characterization with a follow-up brain MRI. 3. Atrophy. 4. Chronic paranasal sinusitis, as detailed above. 5. Bilateral mastoid disease. D/ / 01/16/2018 11:08:45 Lam Mccall MD / earnold Interpreting Provider: Lam Mccall MD Insertion Tunneled Catheter 01/17/18 00:00 IMPRESSION: 1. Successful removal of the left chest wall tunneled dialysis catheter as discussed above. D/ / Mathew Ma MD / Mathew Ma MD Interpreting Provider: Mathew Ma MD Consult Discharge Plan - Plan Referrals: Thomas Montero MD [Primary Care Provider] - Palliative Quality Palliative Quality: Screen for Code Status: Yes, Screen for Goals of Care: Yes, Screen for Pain: Yes, Screen for Nausea/Vomitting: Yes Code Status: 01/15/18 11:54 CODE [Resuscitation Status: Active] [RES] Routine Comment: Resuscitation Status: Full Code
--- NOTE | 2018-01-17 14:49 | Discharge Summary ---
<BarbaraashleyBuster - Last Filed: 01/18/18 15:17> Orders not resulted at time of discharge: Pending orders 01/15/18 12:10 Sputum Culture [Culture,Sputum with Gram Stain] [RM] Routine 01/15/18 16:15 Culture,Blood [BC] Routine 01/16/18 17:01 Culture,Urine [RM] Stat 01/17/18 10:33 Culture,Catheter Tip [RM] Routine 01/17/18 13:18 Culture,Blood [BC] Routine 01/18/18 04:00 Vancomycin,Random AM 0400 01/18/18 10:45 Arterial Blood Gas DAILY 01/19/18 10:45 Arterial Blood Gas DAILY 01/20/18 10:45 Arterial Blood Gas DAILY 01/21/18 10:45 Arterial Blood Gas DAILY 01/22/18 10:45 Arterial Blood Gas DAILY 01/23/18 10:45 Arterial Blood Gas DAILY 01/24/18 10:45 Arterial Blood Gas DAILY Date of Encounter: 01/18/18 Time of Encounter: 14:49 - Discharge Diagnosis (1) Septic shock Priority: Primary Status: Acute Comments: Patient persistently hypotensive with most recent blood pressure 91/40 Currently on 2.5 mcg/m of norepinephrine drip Goals to maintain MAP of 60 in order to maintain adequate tissue perfusion Most recent lactic acid normal at 1.8 on January 1501/12: Peripheral venipuncture at retirement shows methicillin resistant Staphylococcus aureus 01/12: Patient started on vancomycin at retirement 01/12: Patient urine culture shows Nivia albicans and pseudomonas aeruginosa 01/12: Patient started on Zosyn 01/15: Patient blood culture from peripheral venipuncture shows methicillin resistant Staphylococcus aureus 2 01/15: Urine culture from clean catch shows Nivia albicans and pseudomonas aeruginosa 01/15: Sputum culture from aspirate shows pseudomonas aeruginosa and multidrug- resistant Klebsiella pneumonia-sensitive to Zosyn 01/15: Patient blood culture from central venous catheter resulted in multidrug- resistant Klebsiella pneumonia-sensitive to Zosyn 01/16: Patient started on meropenem-stopped Zosyn 01/17: Patient started on Levaquin-stopped meropenem 01/18: Patient restarted on Zosyn Patient is currently receiving vancomycin and levofloxacin for MRSA and gram- negative alex coverage, as well as Zosyn for pseudomonal and Klebsiella coverage (2) ESRD (end stage renal disease) Priority: Secondary Status: Acute Comments: Patient has recent (2 month) history of end-stage renal disease Patient scheduled for Wednesday, Wednesday hemodialysis HD catheter shows Klebsiella bacteria growth-IR removed tunneled catheter on January 17, culture of catheter tip is confirmatory for Klebsiella IR insertion of temporary dialysis catheter for continuation of hemodialysis on January 18 Patient did not receive dialysis on January 18 prior to transfer from [facility] (3) MRSA bacteremia Priority: Secondary Status: Acute Comments: Patient with positive blood culture on 01/12 showing MRSA bacteremia Potential source of MRSA likely due to chronic endocarditis Per cardiology, patient is likely a poor candidate for valvular replacement Vancomycin for MRSA coverage (4) Chronic endocarditis Priority: Secondary Status: Acute Comments: Patient history 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-subsequent medical management with IV antibiotics and oral Keflex Patient has deteoewe-oh-lqvsjx aortic insufficiency and moderate tricuspid regurgitation as well as mild mitral regurgitation- Harsh, blowing systolic murmur 3/6 noted in the fourth intercostal space left sternal border TTE nondiagnostic, per cardiology recommendation YUE inappropriate at this time Patient is unlikely to be a good candidate for valve replacement given his current condition Transfer to [facility] per family request Qualifiers: Endocarditis type: infective Infective endocarditis organism: bacterial Qualified Code(s): I33.0 - Acute and subacute infective endocarditis (5) Type 2 diabetes mellitus Priority: Secondary Status: Acute Comments: Patient is currently receiving a low dose sliding scale insulin regimen POC glucose every 6 hours consistently between 133 and 231 since January 15 Qualifiers: 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 Diabetes mellitus complication status: with kidney complications Diabetes mellitus complication detail: with chronic kidney disease Chronic kidney disease stage : on chronic dialysis Qualified Code(s): E11.22 - Type 2 diabetes mellitus with diabetic chronic kidney disease; N18.6 - End stage renal disease; 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; Z99.2 - Dependence on renal dialysis - Discharge Medications Home Medications: Acetaminophen [Arthritis Pain Relief] 650 mg GTUBE Q6H PRN 01/15/18 [History] Albuterol Neb [Proventil Neb] 2.5 mg IH Q6HR 01/15/18 [History] Amino Acids/Protein Hydrolys [Pro-Stat Awc Liquid] 30 ml GTUBE BID 01/15/18 [ History] Aripiprazole [Abilify] 5 mg GTUBE QDPC 01/15/18 [History] Aspirin [Lo-Dose Aspirin EC] 81 mg GTUBE QAM 01/15/18 [History] Atorvastatin [Lipitor] 40 mg GTUBE HS 01/15/18 [History] Benztropine Mesylate 0.5 mg GTUBE QAM 01/15/18 [History] Chlorhexidine Gluconate [Peridex] 15 ml MM BID 01/15/18 [History] Famotidine [Heartburn Prevention] 20 mg GTUBE QAM 01/15/18 [History] Folic Acid 1 mg GTUBE DAILY 01/15/18 [History] Folic Acid/Vit Bcomp,C [Renal-Ronald Tablet] 0.8 mg GTUBE QAM 01/15/18 [History] Gabapentin [Neurontin] 100 mg GTUBE TID 01/15/18 [History] Insulin Glargine,Hum.rec.anlog [Basaglar Kwikpen U-100] 14 unit SQ HS 01/15/18 [ History] Insulin LISPRO [Admelog Solostar] 0 - 12 unit SQ Q6H 01/15/18 [History] Metoclopramide HCl 5 mg PO BID 01/15/18 [History] Midodrine HCl 10 mg GTUBE BID 01/15/18 [History] Ondansetron HCl [Zofran] 4 mg GTUBE Q6H PRN 01/15/18 [History] OxyCODONE Immed Rel [Roxicodone 5 MG] 5 mg GTUBE Q8HR PRN 01/15/18 [History] Polyethylene Glycol 3350 [MiraLAX] 17 gm GTUBE DAILY PRN 01/15/18 [History] Thiamine (B-1) [Vitamin B-1] 250 mg GTUBE DAILY 01/15/18 [History] clonazePAM [Clonazepam] 0.5 mg GTUBE TID 01/15/18 [History] Heparin 5,000 unit SQ Q8HCO vial 01/17/18 [Rx] Scopolamine Patch [Transderm-Scop] 1.5 mg TD Q72H patch.td72 01/17/18 [Rx] Allergies/Adverse Reactions: 3 Allergy/AdvReac Type Severity Reaction Status Date / Time No Known Allergies Allergy Verified 01/15/18 03:27 Labs on day of discharge: Labs from last 24 hours 01/17/18 01/17/18 01/17/18 11:22 06:49 06:49 WBC 8.5 RBC 3.43 L Hgb 9.6 L Hct 32.5 L MCV 94.8 MCH 28.0 MCHC 29.5 L RDW 18.3 H Plt Count 107 L MPV 13.6 H Immature Gran % 0.5 Seg Neutrophils % 74.1 Lymphocytes % 15.4 Monocytes % 7.9 Eosinophils % 1.7 Basophils % 0.4 Neutrophils # 6.3 Lymphocytes # 1.3 Monocytes # 0.7 Eosinophils # 0.1 Basophils # 0.0 Nucleated RBCs/100 WBC 0.4 H Sample Site ABG pH ABG pCO2 ABG pO2 ABG HCO3 ABG Total CO2 ABG O2 Saturation ABG Base Excess David Test Respiration Rate O2 Delivery Device Blood Gas Modality Inspired O2 Tidal Volume PEEP Sodium 135 L Potassium 3.8 Chloride 98 Carbon Dioxide 23 BUN 65 H Creatinine 3.77 H Est GFR ( Amer) 20 L Est GFR (Non-Af Amer) 17 L BUN/Creatinine Ratio 17 Glucose 182 H POC Glucose 217 H Calculated Osmolality 303 H Calcium 8.1 L Hep Bs Antibody 01/17/18 01/17/18 01/16/18 05:22 05:15 23:36 WBC RBC Hgb Hct MCV MCH MCHC RDW Plt Count MPV Immature Gran % Seg Neutrophils % Lymphocytes % Monocytes % Eosinophils % Basophils % Neutrophils # Lymphocytes # Monocytes # Eosinophils # Basophils # Nucleated RBCs/100 WBC Sample Site L Radial ABG pH 7.48 H ABG pCO2 32 L ABG pO2 102 ABG HCO3 24 ABG Total CO2 25 ABG O2 Saturation 98 ABG Base Excess 1 David Test N/A Respiration Rate 12 O2 Delivery Device AeroMask Blood Gas Modality PRVC Inspired O2 30.0 Tidal Volume 400 PEEP 5 Sodium Potassium Chloride Carbon Dioxide BUN Creatinine Est GFR ( Amer) Est GFR (Non-Af Amer) BUN/Creatinine Ratio Glucose POC Glucose 140 H 161 H Calculated Osmolality Calcium Hep Bs Antibody 01/16/18 01/15/18 18:34 14:28 WBC RBC Hgb Hct MCV MCH MCHC RDW Plt Count MPV Immature Gran % Seg Neutrophils % Lymphocytes % Monocytes % Eosinophils % Basophils % Neutrophils # Lymphocytes # Monocytes # Eosinophils # Basophils # Nucleated RBCs/100 WBC Sample Site ABG pH ABG pCO2 ABG pO2 ABG HCO3 ABG Total CO2 ABG O2 Saturation ABG Base Excess David Test Respiration Rate O2 Delivery Device Blood Gas Modality Inspired O2 Tidal Volume PEEP Sodium Potassium Chloride Carbon Dioxide BUN Creatinine Est GFR ( Amer) Est GFR (Non-Af Amer) BUN/Creatinine Ratio Glucose POC Glucose 230 H Calculated Osmolality Calcium Hep Bs Antibody 3105.81 Preliminary micro results at discharge 01/17/18 13:18 Blood Culture - Preliminary Peripheral Venipuncture Culture is incubating and being continuously monitored for growth. Final report to follow. 01/17/18 13:18 Blood Culture - Preliminary Peripheral Venipuncture Culture is incubating and being continuously monitored for growth. Final report to follow. 01/15/18 12:10 Sputum Culture - Preliminary Aspirate Gram Negative Alex Gram Negative Alex#2 01/15/18 16:00 Blood Culture - Preliminary Central Venous Catheter Gram Negative Alex 01/15/18 16:15 Blood Culture - Preliminary Central Venous Catheter Culture is incubating and being continuously monitored for growth. Final report to follow. - Impressions ITS Impressions Echocardiogram 01/15/18 11:36 Impressions: LVEF 55-60%. Normal LV systolic function. Mildly dilated left ventricle. Mild left ventricular diastolic dysfunction. Mild right ventricular hypokinesis. Mildly dilated right ventricle. Mildly dilated left atrium and right atrium. Mild aortic stenosis. Moderate-severe aortic regurgitation. Cannot rule out vegetatoin given chronic calcified leaflets ho infective endocarditis. Mild mitral regurgitation. Moderate-severe tricuspid regurgitation. Severe pulmonary hypertension. Left Ventricular Wall Motion: Rest Echo Findings All wall segments showed normal motion. Findings: * Study Quality * Technically adequate exam. ECG Findings * Normal sinus rhythm. Left Ventricle * No LVH. Normal systolic function. * Mild left ventricular diastolic dysfunction. * Mildly dilated left ventricle. * LVEF 55-60%. Right Ventricle * Mildly dilated right ventricle. * Mild right ventricular hypokinesis. Left Atrium * Mildly dilated left atrium. Right Atrium * Mildly dilated right atrium. A catheter tip seen. Interatrial Septum * Interatrial septum not well evaluated. Aortic Valve * Moderately calcified aortic valve leaflets. * Moderate-severe aortic regurgitation. * Mild aortic stenosis. * Peak and mean gradients are 23 11 mmHg, respectively. * V1V2 215/320, PG/MG 23/11, LVOT 2.4, KYLIE 2.7 * Cannot rule out vegetatoin given chronic calcified leaflets ho infective endocarditis. Mitral Valve * Mild mitral regurgitation. * Normal mitral valve structure. * No vegetation seen. Tricuspid Valve * Moderate-severe tricuspid regurgitation. * Estimated RVSP is 62 mmHg. * Estimated RA pressure is 15 mmHg on ventilation. * Severe pulmonary hypertension. * No vegetation seen. Pulmonic Valve * Pulmonic valve not well visualized. * No pulmonic regurgitation. Aorta * Normally sized aortic root. Pericardium * The pericardium appears normal. IVC * The IVC is dilated. * < 50% respiratory change. Chest CT 01/15/18 12:24 IMPRESSION: Large bilateral pleural effusions. Areas of consolidation to bilateral lower lobes and to a lesser extent bilateral upper lobes as well as right middle lobe. Superimposed patchy areas of mild ground-glass opacity to the lungs bilaterally along with mild smoothly marginated interlobular septal thickening. Findings may be on the basis of mild pulmonary and interstitial edema along with superimposed atelectasis. Multifocal infiltrates not excluded. Mild diffuse nonspecific subcutaneous edema. Mediastinal and left axillary lymphadenopathy, nonspecific but possibly reactive. Cardiomegaly. Ascites. Atherosclerosis to include coronary artery disease. D/ / 01/15/2018 14:04:56 Onofre Baum MD / adán Interpreting Provider: Onofre Baum MD Chest X-Ray 01/16/18 04:00 IMPRESSION: CHF, unchanged. D/ / Arie De La Cruz MD / Arie De La Cruz MD Interpreting Provider: Arie De La Cruz MD Head CT 01/16/18 09:53 IMPRESSION: 1. No acute intracranial hemorrhage or mass. 2. Age-indeterminate foci of low attenuation within the right parietal and left occipital lobes, most likely subacute to chronic infarcts. However, acute ischemic change is not excluded. Consider further characterization with a follow-up brain MRI. 3. Atrophy. 4. Chronic paranasal sinusitis, as detailed above. 5. Bilateral mastoid disease. D/ / 01/16/2018 11:08:45 Lam Mccall MD / eardaniel Interpreting Provider: Lam Mccall MD Insertion Tunneled Catheter 01/17/18 00:00 IMPRESSION: 1. Successful removal of the left chest wall tunneled dialysis catheter as discussed above. D/ / Mathew Ma MD / aMthew Ma MD Interpreting Provider: Mathew Ma MD Date of admission: 01/15/18 11:54 Primary care physician: Thomas oMntero MD Consults: 01/15/18 10:32 Consult to Nephrology [CONS] Routine Consulting Provider: Kidney Melody/YULIA/MARIELOS/SONYA Reason for Consult: dialysis patient Call Completed: Yes 01/15/18 11:17 Consult to Nutrition [CONS] Routine Comment: Consulting Provider: NUTRITION Reason for Dietary Consult: PO Supplementation 01/15/18 11:36 Consult to Cardiology [CONS] Routine Comment: Consulting Provider: Cardiology [place] Reason for Consult: endocarditis Call Completed: Yes 01/15/18 13:22 Consult to Polls Or Surveys Interviewer [CONS] Routine Reason for SW Consult: from the [place] [facility] [place] 01/15/18 14:45 Consult to Dialysis [CONS] ONCE 01/17/18 09:57 Consult to Interventional Radiology [CONS] Routine Consulting Provider: Radiology Interventional [place] Reason for Consult: Removal of HD tunneled catheter Time Notified: 09:58 Call Completed: Yes 01/17/18 11:04 Consult to Infectious Diseases [CONS] Routine Consulting Provider: Infectious Disease Melody Reason for Consult: MRSA Bacteremia, Klebsiella of HD catheter, Time Notified: 11:05 Call Completed: No 01/17/18 11:34 Consult to Palliative Care [CONS] Routine Comment: Consulting Provider: Palliative Care Melody Reason for Consult: discuss group home POC, end of life, prognosis. Known aortic valve abcess, bacteremia, multiple co-morbidities. Call Completed: Yes Discharging clinician: Buster Sherman Anticipated date of discharge: 01/18/18 - Patient Status Disposition: Transfer Critical Access Hosp Condition: Serious Functional capacity at discharge: bed bound Overall status at discharge: patient is not back to baseline - Discharge Instructions Follow Up With: Thomas Montero MD [Primary Care Provider] - - Diet and Activity Activity: other (Tracheostomy) Diet: other (npo) - Hospital Course Hospital course: Mr. Rivas is a 57 year old male that has tracheostomy, end-stage renal disease presented from transfer [place] emergency department for MRSA bacteremia. Patient was seen to have a fever on 01/12/18 at his retirement the [facility] [place]. Blood cultures were drawn at the retirement and he was found to have MRSA bacteremia and started on vancomycin, Zosyn. Urine culture was also collected but patient makes minimal urine. Upon arrival to [place] ICU patient is to be nonverbal which is his baseline. He opens his eyes spontaneously. He does not interact. Patient was found to be hypotensive at [place] and given 1 bolus of normal saline. Also a right femoral central line was placed. From retirement records patient has a history of MSSA bacteremia with aortic valve endocarditis. This was diagnosed at [facility] in August 2017 where TTE found patient to have aortic valve abscess and vegetation and at that time patient opted for medical management. Patient was admitted to hospital on 09/17/2017 where he had a 87 day stay and ended up being put on tracheostomy and became HD dependent. He again had a YUE which showed aortic valve vegetations and he was continued on chronic Keflex by infectious disease. After this admission patient was discharged to [facility] for further management. Patient has a history of acute CVA as per retirement records. 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 -Upon admission at [facility] ICU, patient switched from Zosyn to meropenem for coverage of gram-negative rods in addition to vancomycin for MRSA coverage. Patient meropenem was switched to Levaquin on January 17. -Patient has received mechanical ventilation through tracheostomy tube during admission to [facility] ICU -Transthoracic echocardiogram evaluation for endocarditis showed a left ventricular ejection fraction of 55-60% with normal left ventricular systolic function and a mildly dilated left ventricle. Patient has mild left ventricular diastolic function with mild right ventricular hypokinesis and a mildly dilated right ventricle. The left and right atrium was mildly dilated with mild aortic stenosis repaired patient was found to have mild mitral regurgitation with moderate to severe tricuspid regurgitation and severe pulmonary hypertension. The TTE was unable to rule out valvular vegetations given chronic calcified leaflets in the setting of a history of infective endocarditis. Per cardiology recommendation YUE was not performed due to the likelihood for continued medical management over surgical intervention. - Time Spent with Patient Total time spent providing and/or coordinating discharge services: Greater than 30 minutes Physical Examination Vital Signs: Vital Signs, Last 4 Hours Temp Pulse Resp BP Pulse Ox 01/17/18 14:00 80 20 96/52 100 01/17/18 13:00 85 14 103/55 98 01/17/18 12:00 81 17 101/46 99 01/17/18 11:48 98.3 F 01/17/18 11:28 18 99 01/17/18 11:00 85 General appearance: no acute distress, other (Patient opens eyes spontaneously but otherwise has no significant interaction to questioning or physical exam) Eyes: nonicteric ENT: oropharynx moist Effort: other (Patient is mechanically ventilated) Auscultation: bilateral: wheezes, rhonchi Cardiovascular: other (There is a harsh, blowing, 3/6 systolic murmur noted in the fourth intercostal space left of the sternal border) Gastrointestinal: hypoactive bowel sounds, soft, non-tender (Patient does not grimace or guard to abdominal palpation), non-distended Extremities: edema (There is significant nonpitting edema noted in the 4 extremities) unable to assess due to mental status <Aaron Steele S - Last Filed: 01/18/18 16:05> Orders not resulted at time of discharge: Pending orders 01/15/18 16:15 Culture,Blood [BC] Routine 01/16/18 17:01 Culture,Urine [RM] Stat 01/17/18 10:33 Culture,Catheter Tip [RM] Routine 01/17/18 13:18 Culture,Blood [BC] Routine 01/18/18 IR cvc insert non tunnel [IR] Routine IR us guide vascular access [IR] Routine 01/18/18 10:45 Arterial Blood Gas DAILY 01/19/18 10:45 Arterial Blood Gas DAILY 01/20/18 10:45 Arterial Blood Gas DAILY 01/21/18 10:45 Arterial Blood Gas DAILY 01/22/18 10:45 Arterial Blood Gas DAILY 01/23/18 10:45 Arterial Blood Gas DAILY 01/24/18 10:45 Arterial Blood Gas DAILY Date of Encounter: 01/18/18 Labs on day of discharge: Labs from last 24 hours 01/18/18 01/18/18 01/18/18 11:51 09:34 06:08 WBC RBC Hgb Hct MCV MCH MCHC RDW Plt Count MPV Immature Gran % Seg Neutrophils % Lymphocytes % Monocytes % Eosinophils % Basophils % Neutrophils # Lymphocytes # Monocytes # Eosinophils # Basophils # Nucleated RBCs/100 WBC Sample Site ABG pH ABG pCO2 ABG pO2 ABG HCO3 ABG Total CO2 ABG O2 Saturation ABG Base Excess David Test Respiration Rate O2 Delivery Device Blood Gas Modality Inspired O2 Tidal Volume PEEP Sodium Potassium Chloride Carbon Dioxide BUN Creatinine Est GFR ( Amer) Est GFR (Non-Af Amer) BUN/Creatinine Ratio Glucose POC Glucose 231 H 133 H Calculated Osmolality Calcium Random Vancomycin Rheumatoid Factor 15 H 01/18/18 01/18/18 01/18/18 04:41 03:35 03:35 WBC 8.6 RBC 3.89 L Hgb 10.8 L Hct 36.2 L MCV 93.1 MCH 27.8 L MCHC 29.8 L RDW 18.3 H Plt Count 126 L MPV 13.5 H Immature Gran % 0.6 Seg Neutrophils % 78.3 Lymphocytes % 11.2 Monocytes % 7.4 Eosinophils % 1.9 Basophils % 0.6 Neutrophils # 6.8 Lymphocytes # 1.0 Monocytes # 0.6 Eosinophils # 0.2 Basophils # 0.1 Nucleated RBCs/100 WBC 0.7 H Sample Site L Radial ABG pH 7.46 H ABG pCO2 34 L ABG pO2 94 ABG HCO3 24 ABG Total CO2 25 ABG O2 Saturation 98 ABG Base Excess 0 David Test N/A Respiration Rate 12 O2 Delivery Device Adult Vent Blood Gas Modality ASSIST CONTROL Inspired O2 30.0 Tidal Volume 400 PEEP 5 Sodium 134 L Potassium 3.5 Chloride 97 L Carbon Dioxide 23 BUN 76 H Creatinine 4.18 H Est GFR ( Amer) 18 L Est GFR (Non-Af Amer) 15 L BUN/Creatinine Ratio 18 Glucose 175 H POC Glucose Calculated Osmolality 305 H Calcium 8.3 L Random Vancomycin Rheumatoid Factor 01/18/18 01/17/18 01/17/18 03:35 23:34 17:41 WBC RBC Hgb Hct MCV MCH MCHC RDW Plt Count MPV Immature Gran % Seg Neutrophils % Lymphocytes % Monocytes % Eosinophils % Basophils % Neutrophils # Lymphocytes # Monocytes # Eosinophils # Basophils # Nucleated RBCs/100 WBC Sample Site ABG pH ABG pCO2 ABG pO2 ABG HCO3 ABG Total CO2 ABG O2 Saturation ABG Base Excess David Test Respiration Rate O2 Delivery Device Blood Gas Modality Inspired O2 Tidal Volume PEEP Sodium Potassium Chloride Carbon Dioxide BUN Creatinine Est GFR ( Amer) Est GFR (Non-Af Amer) BUN/Creatinine Ratio Glucose POC Glucose 227 H 173 H Calculated Osmolality Calcium Random Vancomycin 16 Rheumatoid Factor Preliminary micro results at discharge 01/15/18 16:00 Blood Culture - Preliminary Central Venous Catheter Klebsiella pneumoniae MDRO 01/17/18 13:18 Blood Culture - Preliminary Peripheral Venipuncture Culture is incubating and being continuously monitored for growth. Final report to follow. 01/17/18 13:18 Blood Culture - Preliminary Peripheral Venipuncture Culture is incubating and being continuously monitored for growth. Final report to follow. 01/15/18 16:15 Blood Culture - Preliminary Central Venous Catheter Culture is incubating and being continuously monitored for growth. Final report to follow. - Impressions ITS Impressions Echocardiogram 01/15/18 11:36 Impressions: LVEF 55-60%. Normal LV systolic function. Mildly dilated left ventricle. Mild left ventricular diastolic dysfunction. Mild right ventricular hypokinesis. Mildly dilated right ventricle. Mildly dilated left atrium and right atrium. Mild aortic stenosis. Moderate-severe aortic regurgitation. Cannot rule out vegetatoin given chronic calcified leaflets ho infective endocarditis. Mild mitral regurgitation. Moderate-severe tricuspid regurgitation. Severe pulmonary hypertension. Left Ventricular Wall Motion: Rest Echo Findings All wall segments showed normal motion. Findings: * Study Quality * Technically adequate exam. ECG Findings * Normal sinus rhythm. Left Ventricle * No LVH. Normal systolic function. * Mild left ventricular diastolic dysfunction. * Mildly dilated left ventricle. * LVEF 55-60%. Right Ventricle * Mildly dilated right ventricle. * Mild right ventricular hypokinesis. Left Atrium * Mildly dilated left atrium. Right Atrium * Mildly dilated right atrium. A catheter tip seen. Interatrial Septum * Interatrial septum not well evaluated. Aortic Valve * Moderately calcified aortic valve leaflets. * Moderate-severe aortic regurgitation. * Mild aortic stenosis. * Peak and mean gradients are 23 11 mmHg, respectively. * V1V2 215/320, PG/MG 23/11, LVOT 2.4, KYLIE 2.7 * Cannot rule out vegetatoin given chronic calcified leaflets ho infective endocarditis. Mitral Valve * Mild mitral regurgitation. * Normal mitral valve structure. * No vegetation seen. Tricuspid Valve * Moderate-severe tricuspid regurgitation. * Estimated RVSP is 62 mmHg. * Estimated RA pressure is 15 mmHg on ventilation. * Severe pulmonary hypertension. * No vegetation seen. Pulmonic Valve * Pulmonic valve not well visualized. * No pulmonic regurgitation. Aorta * Normally sized aortic root. Pericardium * The pericardium appears normal. IVC * The IVC is dilated. * < 50% respiratory change. Chest CT 01/15/18 12:24 IMPRESSION: Large bilateral pleural effusions. Areas of consolidation to bilateral lower lobes and to a lesser extent bilateral upper lobes as well as right middle lobe. Superimposed patchy areas of mild ground-glass opacity to the lungs bilaterally along with mild smoothly marginated interlobular septal thickening. Findings may be on the basis of mild pulmonary and interstitial edema along with superimposed atelectasis. Multifocal infiltrates not excluded. Mild diffuse nonspecific subcutaneous edema. Mediastinal and left axillary lymphadenopathy, nonspecific but possibly reactive. Cardiomegaly. Ascites. Atherosclerosis to include coronary artery disease. D/ / 01/15/2018 14:04:56 Onofre Baum MD / adán Interpreting Provider: Onofre Baum MD Chest X-Ray 01/16/18 04:00 IMPRESSION: CHF, unchanged. D/ / Arie De La Cruz MD / Arie De La Cruz MD Interpreting Provider: Arie De La Cruz MD Head CT 01/16/18 09:53 IMPRESSION: 1. No acute intracranial hemorrhage or mass. 2. Age-indeterminate foci of low attenuation within the right parietal and left occipital lobes, most likely subacute to chronic infarcts. However, acute ischemic change is not excluded. Consider further characterization with a follow-up brain MRI. 3. Atrophy. 4. Chronic paranasal sinusitis, as detailed above. 5. Bilateral mastoid disease. D/ / 01/16/2018 11:08:45 Lam Mccall MD / eardaniel Interpreting Provider: Lam Mccall MD Insertion Tunneled Catheter 01/17/18 00:00 IMPRESSION: 1. Successful removal of the left chest wall tunneled dialysis catheter as discussed above. D/ / Mathew Ma MD / Mathew Ma MD Interpreting Provider: Mathew Ma MD Chest X-Ray 01/18/18 14:59 IMPRESSION: 1. Right IJ CVC catheter tip terminates in the SVC. 2. Fluid overload/CHF 3. No pneumothorax. D/ / Kelvin Benavidez / Kelvin Benavidez Interpreting Provider: Kelvin Benavidez Date of admission: 01/15/18 11:54 Primary care physician: Thomas Montero MD Consults: 01/15/18 10:32 Consult to Nephrology [CONS] Routine Consulting Provider: Kidney Melody/YULIA/MARIELOS/SONYA Reason for Consult: dialysis patient Call Completed: Yes 01/15/18 11:17 Consult to Nutrition [CONS] Routine Comment: Consulting Provider: NUTRITION Reason for Dietary Consult: PO Supplementation 01/15/18 11:36 Consult to Cardiology [CONS] Routine Comment: Consulting Provider: Cardiology [place] Reason for Consult: endocarditis Call Completed: Yes 01/15/18 13:22 Consult to Polls Or Surveys Interviewer [CONS] Routine Reason for SW Consult: from the [place] [facility] [place] 01/15/18 14:45 Consult to Dialysis [CONS] ONCE 01/17/18 09:57 Consult to Interventional Radiology [CONS] Routine Consulting Provider: Radiology Interventional [place] Reason for Consult: Removal of HD tunneled catheter Time Notified: 09:58 Call Completed: Yes 01/17/18 11:04 Consult to Infectious Diseases [CONS] Routine Consulting Provider: Infectious Disease [place] Reason for Consult: MRSA Bacteremia, Klebsiella of HD catheter, Time Notified: 11:05 Call Completed: No 01/17/18 11:34 Consult to Palliative Care [CONS] Routine Comment: Consulting Provider: Palliative Care [place] Reason for Consult: discuss group home POC, end of life, prognosis. Known aortic valve abcess, bacteremia, multiple co-morbidities. Call Completed: Yes 01/18/18 10:59 Consult to Interventional Radiology [CONS] Routine Consulting Provider: Radiology Interventional [place] Reason for Consult: Please place temp line. Call Completed: No 01/18/18 11:30 Consult to Dialysis [CONS] ONCE - Hospital Course Hospital course: I agree with resident documentation regarding hospital course patient was transferred to [facility] since family requested transfer . - Time Spent with Patient Total time spent providing and/or coordinating discharge services: Physical Examination Vital Signs: Vital Signs, Last 4 Hours Pulse Resp BP Pulse Ox 01/18/18 15:00 81 16 95/46 100 01/18/18 14:00 84 18 92/42 100 01/18/18 13:56 15 100 01/18/18 13:00 84 13 95/54 100
--- NOTE | 2018-01-17 15:00 | Infectious Disease Consult ---
Date of Encounter: 01/17/18 Time of Encounter: 14:00 Assessment and Plan (1) Septic shock Status: Acute Assessment and plan: The patient had 3 sepsis criteria plus hypotension requiring vasopressors on admission. Likely secondary to bacteremia. The patient also has findings indicative of UTI and possible pneumonia. White blood cell count remains normal. He continues to require vasopressors. Tachycardia has improved. Tachypnea has resolved. Blood cultures obtained from a peripheral stick 01/12/18 are +1 out of 1 set for MRSA. Repeat blood cultures drawn sets from a peripheral stick are +2 out of 2 sets. Additional blood cultures drawn 01/15/18 from the permacath are +1 out of 2 sets for gram-negative rods. Additional blood cultures drawn from a peripheral stick 2 sets drawn 01/17/18 after the permacath was removed are pending. (2) MRSA bacteremia Status: Acute Assessment and plan: Does not organism: MRSA. Source: Likely the permacath. Blood cultures obtained from a peripheral stick 01/12/18 are +1 out of 1 set for MRSA. Repeat blood cultures drawn sets from a peripheral stick are +2 out of 2 sets for MRSA. Additional blood cultures drawn 01/15/18 from the permacath are +1 out of 2 sets for gram-negative rods. Additional blood cultures drawn from a peripheral stick 2 sets drawn 01/17/18 after the permacath was removed are pending. No endocarditis stigmata noted on exam. The patient does have a history of aortic valve endocarditis with abscess. He was previously treated with 6 weeks of IV antibiotics and was on chronic oral suppressive therapy with Keflex. No endocarditis stigmata noted on exam. The patient has one major and one minor modified [place] criteria. Check rheumatoid factor. TTE completed, but could not rule out infective endocarditis. Cardiology has been consulted to perform a YUE and they have declined as the patient is a poor candidate and will likely not change his course of treatment. Continue vancomycin IV. Pharmacy to dose. Goal trough approximately 15. Duration of treatment depends on the clinical picture. Monitor renal function and for drug toxicity and dose adjust antibiotics. Palliative care has been consulted. We will await their recommendations. Overall prognosis is poor. (3) CLABSI (central line-associated bloodstream infection) Status: Acute Assessment and plan: Causative organism: Klebsiella pneumoniae. Worse: Likely the permacath. Blood cultures drawn 01/15/18 from the Perma-Cath are positive 1/2 sets. Perma-cath removed 01/17/18 Repeat blood cultures drawn 01/17/18 after Perma-cath removed are pending x 2 sets. Continue Levaquin 500mg IV Q48H. Duration of treatment depends on the clinical picture. Dose-adjust antibiotics based on HD states. Qualifiers: Encounter type: initial encounter Qualified Code(s): T80.211A - Bloodstream infection due to central venous catheter, initial encounter (4) Pneumonia Status: Suspected Assessment and plan: Causative organism: Unclear. Sputum cultures positive for gram-negative rods 2. CT chest showed areas of consolidation to the bilateral lower lobes and to a lesser extent the bilateral upper lobes as well as the right middle lobe. Superimposed patchy areas of mild groundglass opacity to the lungs bilaterally along with mild smoothly marginated interlobular septal thickening. These findings may be on the basis of mild pulmonary and interstitial edema along with superimposed atelectasis, but multifocal infiltrates could not be excluded. Continue Levaquin 500 mg IV every 48 hours for now. Await cultures to finalize. Duration of treatment admit on the clinical picture. Dose adjust medications based on hemodialysis status. Qualifiers: Pneumonia type: due to unspecified organism Laterality: bilateral Lung location: unspecified part of lung Qualified Code(s): J18.9 - Pneumonia, unspecified organism (5) UTI (urinary tract infection) Status: Acute Assessment and plan: Asymptomatic bacteriuria versus UTI. Causative organism: Nivia albicans and pseudomonas aeruginosa. Continue Levaquin 500 mg IV every 48 hours as above for now. I am not sure that this needs to be treated. The patient is an HD patient and it is likely that his urine will always have bacteria in it. We will continue the Levaquin as above for now to the CLABSI and possible PNA. Qualifiers: Urinary tract infection type: acute cystitis Hematuria presence: without hematuria Qualified Code(s): N30.00 - Acute cystitis without hematuria (6) Chronic endocarditis Status: Acute Assessment and plan: August 2017 diagnosed with MSSA bacteremia and aortic valve abscess and endocarditis. Not a good surgical candidate, so treated with 6 weeks of IV antibiotics followed by chronic oral suppressive Keflex. Recommend YUE to evaluate given the new onset of MRSA bacteremia. Qualifiers: Endocarditis type: infective Infective endocarditis organism: bacterial Qualified Code(s): I33.0 - Acute and subacute infective endocarditis (7) ESRD (end stage renal disease) Status: Acute Assessment and plan: Nephrology consulted to assist with HD management. (8) Type 2 diabetes mellitus Status: Acute Assessment and plan: Recommend aggressive glucose monitoring and control. Management per the primary team. 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: with mcfp use Diabetes mellitus complication status: with kidney complications Diabetes mellitus complication detail: with chronic kidney disease Chronic kidney disease stage : on chronic dialysis Qualified Code(s): E11.22 - Type 2 diabetes mellitus with diabetic chronic kidney disease; N18.6 - End stage renal disease; Z79.4 - penitentiary (current) use of insulin; Z99.2 - Dependence on renal dialysis Infectious Disease HPI - Data of Consult Patient: new to practice Consult date: 01/17/18 Requesting Physician: Candy Parmar MD Primary Care Provider: Thomas Montero MD - Consult Narrative Reason for consult: MRSA bacteremia History of present illness: Mr. Rivas is a 57 year old male with past medical history of end-stage renal disease on hemodialysis Wednesday, , and Wednesday, chronic respiratory failure currently trach to vent dependent, CVA, MSSA bacteremia with endocarditis and aortic valve abscess in August 2017 status post 6 weeks of IV antibiotics currently on oral chronic suppressive therapy. She was admitted to the hospital January 15 for septic shock and renal failure. We are consulted January 17 for further recommendations for MRSA bacteremia. Briefly, the patient is a 57-year-old male with past medical history as stated above. The patient is nonverbal and noncommunicative, therefore, most of the information is obtained from the medical record. Apparently, the patient was hospitalized at [facility] back in August 2017. At that time, he was diagnosed with MSSA bacteremia was noted to have an aortic valve endocarditis with abscess. Due to his multiple comorbid medical conditions and his provider team and family opted to treat with IV antibiotics and chronic oral suppressive therapy rather than perform surgery. Apparently, the patient had blood cultures that were drawn 01/12/18 came back positive for MRSA. He also had a urine culture positive for C. albicans and PSEA. He was started on IV Vanco and Zosyn at the skilled nursing. He continued to have fevers he was transferred to [facility] emergency department. Upon arrival, the patient was febrile, tachycardic, tachypneic, and hypotensive. His lactic acid was normal. His creatinine was indicative of his chronic renal failure. LFTs were mildly elevated with a total bili of 1.4, AST of 47, ALC of 34, and alkaline phosphatase of 214. Chest x-ray showed findings consistent with CHF and left lung base disease concerning for atelectasis versus pneumonia. He had a KUB that showed findings consistent with a possible small bowel obstruction. Repeat blood cultures obtained sets via peripheral stick are +2 out of 2 for MRSA. He was started back on IV vancomycin and transferred here for further evaluation. Upon arrival here, the patient was noted to be hypotensive. He was started on vasopressors. He had a CT of the chest that showed bilateral lower lobe and bilateral upper lobe consolidation concerning for mild pulmonary edema with atelectasis, but multifocal pneumonia cannot be ruled out. He had a transthoracic cardiogram that showed an EF of 55-60%, but infective endocarditis cannot be ruled out. Urinalysis appeared tight uric and the culture again grew out Pseudomonas and Nivia. Attained and is growing out 2 separate gram-negative rods. Blood cultures obtained from his permacath are +1 out of 2 sets for gram-negative rods, presumptively Klebsiella. His permacath was removed this morning. Repeat peripheral blood cultures were drawn after removal 2 sets. Chest x-ray completed yesterday showed findings consistent with CHF that were unchanged from previous imaging. His CT of the head that was negative, but did show chronic infarcts and chronic paranasal sinusitis as well as bilateral mastoid disease. Cardiology was consulted to perform a YUE, but they do not feel that the patient is a good candidate as it will not change his course of treatment and they have declined to perform the YUE. Currently, the patient is on IV Levaquin and Vanco. We have been asked to evaluate and make further recommendations. During my exam today, the patient remains nonverbal and noncommunicative. He does not follow commands. He does open his eyes to verbal stimuli. There is currently no family at the bedside. CC: Candy Parmar MD Past Med Surg Social Fam HX - Past Medical History Source: old records reviewed Medical history: atrial fibrillation, diabetes, renal disease Additional medical history: MRSA, SEPSIS DUE TO MRSA, ANEMIA, V-TACH, RETENTION OF URINE, Aortic valve endocarditis, MSSA bacteremia Psychiatric history: depression, schizophrenia - Social History Smoking Status: Unknown if ever smoked Smokeless Tobacco Status: No (UNKNOWN) Alcohol use: unknown Drug use: unknown - Family History Mother History Unknown: Yes Father History Unknown: Yes Infectious Disease-CN:Meds Acetaminophen [Arthritis Pain Relief] 650 mg GTUBE Q6H PRN 01/15/18 [History] Albuterol Neb [Proventil Neb] 2.5 mg IH Q6HR 01/15/18 [History] Amino Acids/Protein Hydrolys [Pro-Stat Awc Liquid] 30 ml GTUBE BID 01/15/18 [ History] Aripiprazole [Abilify] 5 mg GTUBE QDPC 01/15/18 [History] Aspirin [Lo-Dose Aspirin EC] 81 mg GTUBE QAM 01/15/18 [History] Atorvastatin [Lipitor] 40 mg GTUBE HS 01/15/18 [History] Benztropine Mesylate 0.5 mg GTUBE QAM 01/15/18 [History] Chlorhexidine Gluconate [Peridex] 15 ml MM BID 01/15/18 [History] Famotidine [Heartburn Prevention] 20 mg GTUBE QAM 01/15/18 [History] Folic Acid 1 mg GTUBE DAILY 01/15/18 [History] Folic Acid/Vit Bcomp,C [Renal-Ronald Tablet] 0.8 mg GTUBE QAM 01/15/18 [History] Gabapentin [Neurontin] 100 mg GTUBE TID 01/15/18 [History] Insulin Glargine,Hum.rec.anlog [Basaglar Kwikpen U-100] 14 unit SQ HS 01/15/18 [ History] Insulin LISPRO [Admelog Solostar] 0 - 12 unit SQ Q6H 01/15/18 [History] Metoclopramide HCl 5 mg PO BID 01/15/18 [History] Midodrine HCl 10 mg GTUBE BID 01/15/18 [History] Ondansetron HCl [Zofran] 4 mg GTUBE Q6H PRN 01/15/18 [History] OxyCODONE Immed Rel [Roxicodone 5 MG] 5 mg GTUBE Q8HR PRN 01/15/18 [History] Polyethylene Glycol 3350 [MiraLAX] 17 gm GTUBE DAILY PRN 01/15/18 [History] Thiamine (B-1) [Vitamin B-1] 250 mg GTUBE DAILY 01/15/18 [History] clonazePAM [Clonazepam] 0.5 mg GTUBE TID 01/15/18 [History] Heparin 5,000 unit SQ Q8HCO vial 01/17/18 [Rx] Scopolamine Patch [Transderm-Scop] 1.5 mg TD Q72H patch.td72 01/17/18 [Rx] 3 Allergy/AdvReac Type Severity Reaction Status Date / Time No Known Allergies Allergy Verified 01/15/18 03:27 ROS unobtainable: due to mental status Exam - Constitutional Vitals: Temp Pulse Resp BP Pulse Ox 98.3 F 80 20 96/52 100 01/17/18 11:48 01/17/18 14:00 01/17/18 14:00 01/17/18 14:00 01/17/18 14:00 General appearance: average body habitus, no acute distress, no febrile - Head Head exam: Present: atraumatic, normal inspection, normocephalic - Eye Eye exam: Present: normal appearance, PERRL Pupils: Present: normal accommodation - ENT ENT exam: Present: mucous membranes moist - Neck Neck exam: Present: normal inspection Additional comments: Tracheostomy midline with O2 via the ventilator. Green drainage noted on the fenestrated guaze around the trach. - Respiratory Respiratory exam: Present: CTAB. Absent: rales, respiratory distress, rhonchi, wheezes - Cardiovascular Cardiovascular exam: Present: RRR, +S1, +S2 - GI/Abdominal GI/Abdominal exam: Present: normal bowel sounds, soft. Absent: distended, tenderness Additional comments: PEG tube to suction with small amount of dark green drainage noted. Keita catheter noted to be draining small amount of clear yellow urine. - Extremities Exam Extremities exam: Present: pedal edema (1+ BLE). Absent: joint swelling, tenderness - Neurological Exam Neurological exam: Present: altered (Opens eyes to verbal stimuli, but does not follow commands.) - Skin Skin exam: Present: dry, intact, normal color, warm Infectious Disease CN: Results - Labs CBC & Chem 7: 01/17/18 06:49 01/17/18 06:49 Cultures: Cultures 01/17/18 13:18 Blood Culture - Preliminary Peripheral Venipuncture Culture is incubating and being continuously monitored for growth. Final report to follow. 01/17/18 13:18 Blood Culture - Preliminary Peripheral Venipuncture Culture is incubating and being continuously monitored for growth. Final report to follow. 01/15/18 12:10 Sputum Culture - Preliminary Aspirate Gram Negative Alex Gram Negative Alex#2 01/15/18 16:00 Blood Culture - Preliminary Central Venous Catheter Gram Negative Alex 01/15/18 16:15 Blood Culture - Preliminary Central Venous Catheter Culture is incubating and being continuously monitored for growth. Final report to follow. Serology: Serology 01/15/18 01/15/18 Range/Units 16:00 14:28 A. baumannii (PCR) Not Detected (Not Detect) Nivia albicans (PCR) Not Detected (Not Detect) C. glabrata (PCR) Not Detected (Not Detect) C. krusei (PCR) Not Detected (Not Detect) C. parapsilosis (PCR) Not Detected (Not Detect) C. tropicalis (PCR) Not Detected (Not Detect) Enterobacteriac sp PCR DETECTED A (Not Detect) E. cloacae complex PCR Not Detected (Not Detect) Enterococcus sp PCR Not Detected (Not Detect) E. coli (PCR) Not Detected (Not Detect) H. influenzae (PCR) Not Detected (Not Detect) Hep Bs Antigen Nonreactive (Nonreactive) Hep Bs Antibody 3105.81 mIU/mL Klebsiella oxytoca PCR Not Detected (Not Detect) Klebsiella pneumoniae DETECTED A (Not Detect) List. monocytogenes PCR Not Detected (Not Detect) N. meningitidis (PCR) Not Detected (Not Detect) Proteus species (PCR) Not Detected (Not Detect) Serratia marcescens PCR Not Detected (Not Detect) Staphylococcus sp PCR Not Detected (Not Detect) Staph aureus (PCR) Not Detected (Not Detect) mecA-Methicil Res Gene Not Detected (Not Detect) Streptococcus sp PCR Not Detected (Not Detect) Group A Strep DNA Not Detected (Not Detect) Group B Strep (PCR) Not Detected (Not Detect) Strep pneumoniae (PCR) Not Detected (Not Detect) P. aeruginosa (PCR) Not Detected (Not Detect) Kim/B-Vanco Res Genes Not Detected (Not Detect) KPC (blaKPC) Detect PCR Not Detected (Not Detect) Consult Discharge Plan - Plan Referrals: Thomas Montero MD [Primary Care Provider] - - Attending Attestation I examined this patient and my medical decision-making was reviewed with the Resident Physician. I agree with the documented findings, disposition and treatment plan as described except to the extent set forth below. This is an addendum to original report dictated by Jael Schaffer CNP. Please refer to Jael's note for full detail. Patient is a 57-year-old gentleman with past medical history mentioned below including recent endocarditis of the aortic valve not sure what was the causative organism apparently he was on Keflex suppressive therapy. Patient also with history of CVA chronic respiratory failure with trach and a PEG tube presented to [place] with septic shock, MRSA bacteremia and central line associated bloodstream infection. At this point to septic shock could have been due to the MRSA bacteremia or a combination of MRSA bacteremia and central line associated bacterial infection with MRSA and klebsiella. Agree with current antibiotics including vancomycin and Zosyn TTE is nonconclusive so patient will need a YUE We will try to get records from [facility] to see what causative organism that endocarditis was Continue dialysis per no further recommendations Discussed with nursing staff They are thinking there is a possibility that they want transferred to [facility]
--- NOTE | 2018-01-17 15:14 | Electrocardiograph Report ---
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
[2018-01-17] MEDS ORDERED: Meropenem 500 MG in Water for inj. (sterile) 20 ML 5 ML IVP SCH (16:00)
[2018-01-18] MEDS: Insulin LISPRO 300 UNITS/3 ML VIAL SQ SCH ×3 (00:19→11:53)
[2018-01-18] MEDS: Artificial Tears SOLN 15 ML BOTTLE BOTH EYES SCH ×4 (00:19→11:54)
[2018-01-18 03:47] LABS: Basophils # 0.1 K/mcL (0.0-0.2); Basophils % 0.6 %; Eosinophils # 0.2 K/mcL (0.0-0.6); Eosinophils % 1.9 %; Hematocrit 36.2 % (37.5-50.1); Hemoglobin 10.8 g/dL (12.9-16.9); Immature Granulocytes % 0.6 % (0-4); Lymphocytes % 11.2 %; Mean Corpuscular HGB Conc 29.8 g/dL (31.6-35.5); Mean Corpuscular Hemoglobin 27.8 pg (28.0-33.3); Mean Corpuscular Volume 93.1 fL (83.0-100.0); Mean Platelet Volume 13.5 fL (9.4-12.4); Monocytes # 0.6 K/mcL (0.0-1.3); Monocytes % 7.4 %; Neutrophils # 6.8 K/mcL (1.6-8.9); Nucleated Red Blood Cells 0.7 /100 WBC (0); Platelet Count 126 K/mcL (140-400); Red Blood Count 3.89 M/mcL (4.19-5.50); Red Cell Distribution Width 18.3 % (11.5-14.5); Segmented Neutrophils % 78.3 %
[2018-01-18] MEDS: Norepinephrine 4 MG in D5% in Water 250 ML IVC SCH (03:50)
[2018-01-18 04:07] LABS: Calcium 8.3 mg/dL (8.6-10.3); Potassium 3.5 mEq/L (3.5-5.1)
[2018-01-18 04:45] LABS: ABG Base Excess 0 mEq/L (-2 to 3); ABG HCO3 24 mEq/L (21-27); ABG Oxygen Saturation 98 % (95-98); ABG PCO2 34 mmHg (35-45); ABG PH 7.46 pH Units (7.32-7.45); ABG PO2 94 mmHg (85-104); ABG TCO2 25 mEq/L (20-26); Blood Gas Modality ASSIST CONTROL; Blood Gas PEEP 5 cm H2O; Blood Gas Respiration Rate 12; Blood Gas VT 400 cc
[2018-01-18] MEDS: *HR* Heparin 5,000 UNIT/ML VIAL SQ SCH (06:05)
--- NOTE | 2018-01-18 07:21 | Pulmonology Progress Note ---
Date of Encounter: 01/18/18 Assessment and Plan (1) Septic shock Current Visit: Yes Status: Inactive Patient presented with fever, hypertension, tachypnea Patient has positive blood cultures of MRSA drawn on 01/12 at group home He started on vancomycin and Zosyn on 01/12 at group home His presenting blood pressures 88/44 and patient is a end-stage renal disease patient was given 1 L IV fluid however is very fluid overloaded and could not be given additional fluid resuscitation His blood pressure remained and 88 over 40s lactic acid 1.8 Upon presenting at [facility] patient MAP was less than 60 and was started on Levophed. (2) ESRD (end stage renal disease) Current Visit: Yes Status: Acute Patient has a history of ESRD on Wednesday, , Wednesday hemodialysis. Patient has been ESRD for 2 months now assisted records indicate ESRD secondary to acute tubular necrosis with overt hypotension without improvement after being started on hemodialysis. Nephrology consultation for dialysis . CV fluid overloaded with bilateral lower extremity edema and bilateral upper extremity edema. (3) MRSA bacteremia Current Visit: Yes Status: Acute Patient has positive blood cultures on 01/12 Source: Possibly pneumonia as patient has thick sputum production. Patient also has left permacath which does not appear to be infected. Plan: Repeat blood cultures drawn on 01/15 by [place] emergency department. We will draw blood cultures from permacath. We will obtain sputum culture. Continue vancomycin. (4) Chronic endocarditis Current Visit: Yes Status: Acute Patient has history of MSSA endocarditis. Initially diagnosed at [facility] on September/2017. YUE at that time showed aortic valve abscess and vegetation. Patient opted for medical management and was put on IV antibiotics for 6 weeks. Patient was readmitted to [facility] were repeat YUE on 10/05 showed a EF of 50-55% with aortic valve vegetation and moderate severe aortic insufficiency and moderate tricuspid regurgitation and patient was continued on chronic oral Keflex by infectious disease. Patient now has MRSA bacteremia and there is concern for endocarditis We have ordered a TTE and cardiology has been consulted as well. If TTE is nondiagnostic we will obtain a YUE. Qualifiers: Endocarditis type: infective Infective endocarditis organism: bacterial Qualified Code(s): I33.0 - Acute and subacute infective endocarditis (5) Type 2 diabetes mellitus Current Visit: Yes Status: Acute Patient has a history of type 2 diabetes mellitus insulin-dependent Hemoglobin A1c on 08/27 was 9.8 Patient is nothing by mouth. Nutritional consult Every 6 hours Accu-Cheks Every 6 hours low-dose sliding scale Qualifiers: Diabetes mellitus mcc insulin use: with manager intermediate use Diabetes mellitus complication status: with kidney complications Diabetes mellitus complication detail: with chronic kidney disease Chronic kidney disease stage : on chronic dialysis Qualified Code(s): E11.22 - Type 2 diabetes mellitus with diabetic chronic kidney disease; N18.6 - End stage renal disease; Z79.4 - manager intermediate (current) use of insulin; Z99.2 - Dependence on renal dialysis (6) Anxiety and depression Current Visit: Yes Status: Acute controlled continue home meds Subjective Principal diagnosis: Septic shock Objective PUL Vital signs: Last Vital Signs Temp 97.5 F L 01/18/18 03:54 Pulse 85 01/18/18 06:00 Resp 20 01/18/18 06:00 BP 102/43 01/18/18 06:00 Pulse Ox 100 01/18/18 06:00 Ventilator Settings Ventilator Settings: Ventilator Settings, Last 8 Hours Ventilator Tidal Volume 400 Setting Ventilator Tidal Volume 400 Setting Ventilator Tidal Volume 400 Setting Ventilator Tidal Volume 400 Setting Ventilator Tidal Volume 400 Setting Ventilator Tidal Volume 400 Setting Ventilator Tidal Volume 400 Setting Ventilator Tidal Volume 400 Setting Ventilator Tidal Volume 400 Setting Ventilator Tidal Volume 400 Setting Ventilator Respiratory Rate 12 Setting Ventilator Respiratory Rate 12 Setting Ventilator Respiratory Rate 12 Setting Ventilator Respiratory Rate 12 Setting Ventilator Respiratory Rate 12 Setting Ventilator Respiratory Rate 12 Setting Ventilator Respiratory Rate 12 Setting Ventilator Respiratory Rate 12 Setting Ventilator Respiratory Rate 12 Setting Ventilator Respiratory Rate 12 Setting Actual Respiratory Rate 20 Actual Respiratory Rate 14 Actual Respiratory Rate 14 Actual Respiratory Rate 15 Actual Respiratory Rate 15 Actual Respiratory Rate 14 Actual Respiratory Rate 15 Actual Respiratory Rate 16 Actual Respiratory Rate 15 Positive End Expiratory 5 Pressure Positive End Expiratory 5 Pressure Positive End Expiratory 5 Pressure Positive End Expiratory 5 Pressure Positive End Expiratory 5 Pressure Positive End Expiratory 5 Pressure Positive End Expiratory 5 Pressure Positive End Expiratory 5 Pressure Positive End Expiratory 5 Pressure Positive End Expiratory 5 Pressure Peak Inspiratory Airway 19 Pressure Peak Inspiratory Airway 15 Pressure Peak Inspiratory Airway 14 Pressure Peak Inspiratory Airway 17 Pressure Peak Inspiratory Airway 14 Pressure Peak Inspiratory Airway 15 Pressure Peak Inspiratory Airway 15 Pressure Peak Inspiratory Airway 15 Pressure Peak Inspiratory Airway 15 Pressure Results - Laboratory Findings CBC and BMP: 01/18/18 03:35 01/18/18 03:35 ABG ABG pH 7.46 pH Units (7.32-7.45) H 01/18/18 04:41 ABG pCO2 34 mmHg (35-45) L 01/18/18 04:41 ABG pO2 94 mmHg (85-104) 01/18/18 04:41 ABG O2 Saturation 98 % (95-98) 01/18/18 04:41 Abnormal lab findings: Abnormal lab results RBC 3.89 M/mcL (4.19-5.50) L 01/18/18 03:35 Hgb 10.8 g/dL (12.9-16.9) L 01/18/18 03:35 Hct 36.2 % (37.5-50.1) L 01/18/18 03:35 MCH 27.8 pg (28.0-33.3) L 01/18/18 03:35 MCHC 29.8 g/dL (31.6-35.5) L 01/18/18 03:35 RDW 18.3 % (11.5-14.5) H 01/18/18 03:35 Plt Count 126 K/mcL (140-400) L 01/18/18 03:35 MPV 13.5 fL (9.4-12.4) H 01/18/18 03:35 Nucleated RBCs/100 WBC 0.7 /100 WBC (0) H 01/18/18 03:35 ABG pH 7.46 pH Units (7.32-7.45) H 01/18/18 04:41 ABG pCO2 34 mmHg (35-45) L 01/18/18 04:41 Sodium 134 mEq/L (136-145) L 01/18/18 03:35 Chloride 97 mEq/L (98-107) L 01/18/18 03:35 BUN 76 mg/dL (6-20) H 01/18/18 03:35 Creatinine 4.18 mg/dL (0.70-1.30) H 01/18/18 03:35 Est GFR ( Amer) 18 (> 60) L 01/18/18 03:35 Est GFR (Non-Af Amer) 15 (> 60) L 01/18/18 03:35 Glucose 175 mg/dL (70-105) H 01/18/18 03:35 POC Glucose 133 mg/dL (70-99) H 01/18/18 06:08 Calculated Osmolality 305 (280-300) H 01/18/18 03:35 Calcium 8.3 mg/dL (8.6-10.3) L 01/18/18 03:35 Vancomycin Trough 22 mcg/mL (5-10) H 01/15/18 12:02 Enterobacteriac sp PCR DETECTED (Not Detect) A 01/15/18 16:00 Klebsiella pneumoniae DETECTED (Not Detect) A 01/15/18 16:00 - Microbiology Findings Microbiology Findings: Microbiology, Last 48 Hours 01/17/18 13:18 Blood Culture - Preliminary Peripheral Venipuncture Culture is incubating and being continuously monitored for growth. Final report to follow. 01/17/18 13:18 Blood Culture - Preliminary Peripheral Venipuncture Culture is incubating and being continuously monitored for growth. Final report to follow. 01/15/18 12:10 Sputum Culture - Preliminary Aspirate Gram Negative Alex Gram Negative Alex#2 01/15/18 16:00 Blood Culture - Preliminary Central Venous Catheter Gram Negative Alex 01/15/18 16:15 Blood Culture - Preliminary Central Venous Catheter Culture is incubating and being continuously monitored for growth. Final report to follow. - Clinical Findings Intake & Output: Intake & Output 01/17/18 01/17/18 01/18/18 15:59 23:59 07:59 Intake Total 126 / 126 136 / 136 Output Total 395 / 395 50 / 50 25 / 25 Balance -395 / -395 76 / 76 111 / 111 Weight 65 kg Consult Discharge Plan - Plan Referrals: Thomas Montero MD [Primary Care Provider] -
[2018-01-18] MEDS: Chlorhexidine Rinse 15 ML MOUTHWASH MM SCH (07:47)
[2018-01-18] MEDS: Famotidine 20 MG TABLET GTUBE SCH (07:47)
[2018-01-18] MEDS: clonazePAM 0.5 MG TABLET GTUBE SCH (07:47)
[2018-01-18] MEDS: ARIPiprazole 5 MG TABLET GTUBE SCH (07:47)
[2018-01-18] MEDS ORDERED: Piperacillin/Tazobactam 3.375 GM in 0.9 % Sodium Chloride Mini Bag 100 ML IVPB SCH (09:00)
--- NOTE | 2018-01-18 09:31 | Infectious Disease Progress No ---
Date of Encounter: 01/18/18 Time of Encounter: 09:29 - Assessment and Plan (1) Septic shock Status: Acute The patient had 3 sepsis criteria plus hypotension requiring vasopressors on admission. Likely secondary to bacteremia. The patient also has findings indicative of UTI and possible pneumonia. White blood cell count remains normal. He continues to require vasopressors. Tachycardia has improved. Tachypnea has resolved. Blood cultures obtained from a peripheral stick 01/12/18 are +1 out of 1 set for MRSA. Repeat blood cultures drawn sets from a peripheral stick are +2 out of 2 sets for MRSA. Additional blood cultures drawn 01/15/18 from the permacath are +1 out of 2 sets for multidrug-resistant Klebsiella pneumoniae. Additional blood cultures drawn from a peripheral stick 2 sets drawn 01/17/18 after the permacath was removed are pending. (2) MRSA bacteremia Status: Acute Causative organism: MRSA. Source: Likely the permacath. Blood cultures obtained from a peripheral stick 01/12/18 are +1 out of 1 set for MRSA. Repeat blood cultures drawn sets from a peripheral stick are +2 out of 2 sets for MRSA. Additional blood cultures drawn 01/15/18 from the permacath are +1 out of 2 sets for MDR K. pneumoniae. Additional blood cultures drawn from a peripheral stick 2 sets drawn 01/17/18 after the permacath was removed are pending. No endocarditis stigmata noted on exam. The patient does have a history of MSSA aortic valve endocarditis with abscess. He was previously treated with 6 weeks of IV antibiotics and was on chronic oral suppressive therapy with Keflex. No endocarditis stigmata noted on exam. The patient has one major and one minor modified [place] criteria. Check rheumatoid factor.--> pending. TTE completed, but could not rule out infective endocarditis. Cardiology has been consulted to perform a YUE and they have declined as the patient is a poor candidate and will likely not change his course of treatment. Family has requested transfer to [facility] for a second opinion. Continue vancomycin IV. Pharmacy to dose. Goal trough approximately 15. Duration of treatment depends on the clinical picture. Monitor renal function and for drug toxicity and dose adjust antibiotics. Overall prognosis is poor. (3) CLABSI (central line-associated bloodstream infection) Status: Acute Causative organism: Klebsiella pneumoniae MDRO. Source: Likely the permacath. Blood cultures drawn 01/15/18 from the Perma-Cath are positive 1/2 sets. Perma-cath removed 01/17/18 Repeat peripheral blood cultures drawn 01/17/18 after Perma-cath removed are pending x 2 sets. Discontinue Levaquin. Start Zosyn 3.375 grams IV Q12H based on the susceptibilities. Duration of treatment depends on the clinical picture. Dose-adjust antibiotics based on HD states. Qualifiers: Encounter type: initial encounter Qualified Code(s): T80.211A - Bloodstream infection due to central venous catheter, initial encounter (4) Pneumonia Status: Suspected Causative organism: PSEA and MDRO K. pneumoniae. CT chest showed areas of consolidation to the bilateral lower lobes and to a lesser extent the bilateral upper lobes as well as the right middle lobe. Superimposed patchy areas of mild groundglass opacity to the lungs bilaterally along with mild smoothly marginated interlobular septal thickening. These findings may be on the basis of mild pulmonary and interstitial edema along with superimposed atelectasis, but multifocal infiltrates could not be excluded. Discontinue Levaquin. Start Zosyn 3.375 grams IV Q12H. Duration of treatment admit on the clinical picture. Dose adjust medications based on hemodialysis status. Qualifiers: Pneumonia type: due to unspecified organism Laterality: bilateral Lung location: unspecified part of lung Qualified Code(s): J18.9 - Pneumonia, unspecified organism (5) UTI (urinary tract infection) Status: Acute Asymptomatic bacteriuria versus UTI. Causative organism: Nivia albicans and pseudomonas aeruginosa. Continue Levaquin 500 mg IV every 48 hours as above for now. I am not sure that this needs to be treated. The patient is an HD patient and it is likely that his urine will always have bacteria in it. We will treat with Zosyn as above for now for the CLABSI and possible PNA. Qualifiers: Urinary tract infection type: acute cystitis Hematuria presence: without hematuria Qualified Code(s): N30.00 - Acute cystitis without hematuria (6) Chronic endocarditis Status: Acute August 2017 diagnosed with MSSA bacteremia and aortic valve abscess and endocarditis. Not a good surgical candidate, so treated with 6 weeks of IV antibiotics followed by chronic oral suppressive Keflex. Recommend YUE to evaluate given the new onset of MRSA bacteremia. Qualifiers: Endocarditis type: infective Infective endocarditis organism: bacterial Qualified Code(s): I33.0 - Acute and subacute infective endocarditis (7) ESRD (end stage renal disease) Status: Acute Nephrology consulted to assist with HD management. (8) Type 2 diabetes mellitus Status: Acute Recommend aggressive glucose monitoring and control. Management per the primary team. Qualifiers: Diabetes mellitus assisted insulin use: with roasterman use Diabetes mellitus complication status: with kidney complications Diabetes mellitus complication detail: with chronic kidney disease Chronic kidney disease stage : on chronic dialysis Qualified Code(s): E11.22 - Type 2 diabetes mellitus with diabetic chronic kidney disease; N18.6 - End stage renal disease; Z79.4 - correction (current) use of insulin; Z99.2 - Dependence on renal dialysis - Subjective Interval history: Patient seen and examined. No acute events noted overnight. Pending transfer to [facility] once a bed becomes available. Patient remains minimally responsive and only opens his eyes to verbal stimuli. He does not attempt to communicate or follow commands. Per nursing, the patient had an episode of emesis yesterday afternoon. Schneider, blood streaked secretions noted from the tracheostomy. No other new issues per nursing. Infect Dis PN-Objective Data - Labs CBC & Chem 7: 01/18/18 03:35 01/18/18 03:35 Labs: Laboratory Results - last 24 hr 01/17/18 01/17/18 01/17/18 11:22 17:41 23:34 WBC RBC Hgb Hct MCV MCH MCHC RDW Plt Count MPV Immature Gran % Seg Neutrophils % Lymphocytes % Monocytes % Eosinophils % Basophils % Neutrophils # Lymphocytes # Monocytes # Eosinophils # Basophils # Nucleated RBCs/100 WBC Sample Site ABG pH ABG pCO2 ABG pO2 ABG HCO3 ABG Total CO2 ABG O2 Saturation ABG Base Excess David Test Respiration Rate O2 Delivery Device Blood Gas Modality Inspired O2 Tidal Volume PEEP Sodium Potassium Chloride Carbon Dioxide BUN Creatinine Est GFR ( Amer) Est GFR (Non-Af Amer) BUN/Creatinine Ratio Glucose POC Glucose 217 H 173 H 227 H Calculated Osmolality Calcium Random Vancomycin 01/18/18 01/18/18 01/18/18 03:35 03:35 03:35 WBC 8.6 RBC 3.89 L Hgb 10.8 L Hct 36.2 L MCV 93.1 MCH 27.8 L MCHC 29.8 L RDW 18.3 H Plt Count 126 L MPV 13.5 H Immature Gran % 0.6 Seg Neutrophils % 78.3 Lymphocytes % 11.2 Monocytes % 7.4 Eosinophils % 1.9 Basophils % 0.6 Neutrophils # 6.8 Lymphocytes # 1.0 Monocytes # 0.6 Eosinophils # 0.2 Basophils # 0.1 Nucleated RBCs/100 WBC 0.7 H Sample Site ABG pH ABG pCO2 ABG pO2 ABG HCO3 ABG Total CO2 ABG O2 Saturation ABG Base Excess David Test Respiration Rate O2 Delivery Device Blood Gas Modality Inspired O2 Tidal Volume PEEP Sodium 134 L Potassium 3.5 Chloride 97 L Carbon Dioxide 23 BUN 76 H Creatinine 4.18 H Est GFR ( Amer) 18 L Est GFR (Non-Af Amer) 15 L BUN/Creatinine Ratio 18 Glucose 175 H POC Glucose Calculated Osmolality 305 H Calcium 8.3 L Random Vancomycin 16 01/18/18 01/18/18 04:41 06:08 WBC RBC Hgb Hct MCV MCH MCHC RDW Plt Count MPV Immature Gran % Seg Neutrophils % Lymphocytes % Monocytes % Eosinophils % Basophils % Neutrophils # Lymphocytes # Monocytes # Eosinophils # Basophils # Nucleated RBCs/100 WBC Sample Site L Radial ABG pH 7.46 H ABG pCO2 34 L ABG pO2 94 ABG HCO3 24 ABG Total CO2 25 ABG O2 Saturation 98 ABG Base Excess 0 David Test N/A Respiration Rate 12 O2 Delivery Device Adult Vent Blood Gas Modality ASSIST CONTROL Inspired O2 30.0 Tidal Volume 400 PEEP 5 Sodium Potassium Chloride Carbon Dioxide BUN Creatinine Est GFR ( Amer) Est GFR (Non-Af Amer) BUN/Creatinine Ratio Glucose POC Glucose 133 H Calculated Osmolality Calcium Random Vancomycin Cultures: Cultures 01/15/18 12:10 Sputum Culture - Final Aspirate Pseudomonas aeruginosa Klebsiella pneumoniae MDRO 01/15/18 16:00 Blood Culture - Preliminary Central Venous Catheter Klebsiella pneumoniae MDRO 01/17/18 13:18 Blood Culture - Preliminary Peripheral Venipuncture Culture is incubating and being continuously monitored for growth. Final report to follow. 01/17/18 13:18 Blood Culture - Preliminary Peripheral Venipuncture Culture is incubating and being continuously monitored for growth. Final report to follow. 01/15/18 16:15 Blood Culture - Preliminary Central Venous Catheter Culture is incubating and being continuously monitored for growth. Final report to follow. Serology 01/15/18 01/15/18 Range/Units 16:00 14:28 A. baumannii (PCR) Not Detected (Not Detect) Nivia albicans (PCR) Not Detected (Not Detect) C. glabrata (PCR) Not Detected (Not Detect) C. krusei (PCR) Not Detected (Not Detect) C. parapsilosis (PCR) Not Detected (Not Detect) C. tropicalis (PCR) Not Detected (Not Detect) Enterobacteriac sp PCR DETECTED A (Not Detect) E. cloacae complex PCR Not Detected (Not Detect) Enterococcus sp PCR Not Detected (Not Detect) E. coli (PCR) Not Detected (Not Detect) H. influenzae (PCR) Not Detected (Not Detect) Hep Bs Antigen Nonreactive (Nonreactive) Hep Bs Antibody 3105.81 mIU/mL Klebsiella oxytoca PCR Not Detected (Not Detect) Klebsiella pneumoniae DETECTED A (Not Detect) List. monocytogenes PCR Not Detected (Not Detect) N. meningitidis (PCR) Not Detected (Not Detect) Proteus species (PCR) Not Detected (Not Detect) Serratia marcescens PCR Not Detected (Not Detect) Staphylococcus sp PCR Not Detected (Not Detect) Staph aureus (PCR) Not Detected (Not Detect) mecA-Methicil Res Gene Not Detected (Not Detect) Streptococcus sp PCR Not Detected (Not Detect) Group A Strep DNA Not Detected (Not Detect) Group B Strep (PCR) Not Detected (Not Detect) Strep pneumoniae (PCR) Not Detected (Not Detect) P. aeruginosa (PCR) Not Detected (Not Detect) Kim/B-Vanco Res Genes Not Detected (Not Detect) KPC (blaKPC) Detect PCR Not Detected (Not Detect) - Impressions Impressions Head CT 01/16/18 09:53 IMPRESSION: 1. No acute intracranial hemorrhage or mass. 2. Age-indeterminate foci of low attenuation within the right parietal and left occipital lobes, most likely subacute to chronic infarcts. However, acute ischemic change is not excluded. Consider further characterization with a follow-up brain MRI. 3. Atrophy. 4. Chronic paranasal sinusitis, as detailed above. 5. Bilateral mastoid disease. D/ / 01/16/2018 11:08:45 Lam Mccall MD / earnold Interpreting Provider: Lam Mccall MD Insertion Tunneled Catheter 01/17/18 00:00 IMPRESSION: 1. Successful removal of the left chest wall tunneled dialysis catheter as discussed above. D/ / Mathew Ma MD / Mathew Ma MD Interpreting Provider: Mathew Ma MD Exam - Constitutional Vitals: Temp Pulse Resp BP Pulse Ox 97.6 F 82 12 107/46 100 01/18/18 07:15 01/18/18 07:57 01/18/18 07:45 01/18/18 07:00 01/18/18 07:45 General appearance: average body habitus, no acute distress, no febrile - Head Head exam: Present: atraumatic, normal inspection, normocephalic - Eye Eye exam: Present: normal appearance, PERRL Pupils: Present: normal accommodation - ENT ENT exam: Present: mucous membranes moist - Neck Neck exam: Present: normal inspection Additional comments: Tracheostomy midline with O2 via the ventilator. - Respiratory Respiratory exam: Present: rhonchi (Scattered). Absent: rales, respiratory distress, wheezes - Cardiovascular Cardiovascular exam: Present: RRR, +S1, +S2 - GI/Abdominal GI/Abdominal exam: Present: normal bowel sounds, soft. Absent: distended, tenderness Additional comments: PEG tube noted to low intermittent wall suction. Heart green gastric contents noted in the suction canister. Keita catheter noted to be draining cloudy dark yellow cloudy urine. - Extremities Exam Extremities exam: Present: pedal edema (1+ bilateral lower extremities). Absent : joint swelling, tenderness Additional comments: 2+ edema noted to bilateral upper extremities. - Neurological Exam Neurological exam: Present: altered (Patient opens eyes to verbal stimuli, but does not follow commands or attempt to communicate.) - Skin Skin exam: Present: dry, intact, normal color, warm - Additional findings Additional findings: Gauze dressing noted to the left upper chest at the site of the previous permacath. No surrounding erythema, tenderness, warmth, or drainage noted. Consult Discharge Plan - Plan Referrals: Thomas Montero MD [Primary Care Provider] - - Attending Attestation I examined this patient and my medical decision-making was reviewed with the Resident Physician. I agree with the documented findings, disposition and treatment plan as described except to the extent set forth below.
--- NOTE | 2018-01-18 11:27 | Event Note ---
Date of Encounter: 01/18/18 Time of Encounter: 11:00 Patient awaiting transfer to [facility] per family request for second opinion. Palliative will sign off. Please call if needed.
[2018-01-18] MEDS ORDERED: *HR* Heparin 10,000 UNIT/10 ML VIAL IV PRN (11:28)
[2018-01-18] MEDS ORDERED: 0.9 % Sodium Chloride 250 ML IVC PRN (11:28)
[2018-01-18] MEDS ORDERED: Albumin 25% 25gram/100mL 25 GM/100 ML IV.SOLN IVPB PRN (11:28)
[2018-01-18] MEDS ORDERED: 0.9 % Sodium Chloride 1,000 ML PRIME SCH (11:30)
--- NOTE | 2018-01-18 13:20 | Pulmonology Progress Note ---
Date of Encounter: 01/18/18 Time of Encounter: 13:17 Assessment and Plan (1) Septic shock Current Visit: Yes Status: Acute Patient persistently hypotensive with most recent blood pressure 91/40 Currently on 2.5 mcg/m of norepinephrine drip Goals to maintain MAP of 60 in order to maintain adequate tissue perfusion Most recent lactic acid normal at 1.8 on January 15 Patient blood cultures have grown MRSA, and Klebsiella species. Sputum culture reveals Klebsiella and pseudomonas. Urine culture reveals Nivai and pseudomonas. Patient is currently receiving vancomycin and levofloxacin for MRSA and gram- negative stephanie coverage, as well as Zosyn for pseudomonal coverage Continue to monitor (2) ESRD (end stage renal disease) Current Visit: Yes Status: Acute Patient has recent (2 month) history of end-stage renal disease Patient scheduled for Wednesday, Wednesday hemodialysis Nephrology consult obtained and is following HD catheter shows Klebsiella bacteria growth-IR removed tunneled catheter on January 17, culture of catheter tip is confirmatory for Klebsiella Consultation placed to IR for insertion of temporary dialysis catheter for continuation of hemodialysis (3) MRSA bacteremia Current Visit: Yes Status: Acute Patient with positive blood culture on 01/12 showing MRSA bacteremia Patient's sputum culture as well as culture of HD catheter revealed gram- negative rods Potential source of MRSA likely due to chronic endocarditis Per cardiology, patient is likely a poor candidate for valvular replacement surgical intervention Continue vancomycin for MRSA coverage ID consult placed (4) Chronic endocarditis Current Visit: Yes Status: Acute Patient history 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-subsequent medical management with IV antibiotics and oral Keflex Patient has [id number] aortic insufficiency and moderate tricuspid regurgitation as well as mild mitral regurgitation-harsh, blowing systolic murmur 3/6 noted in the fourth intercostal space left sternal border Cardiology is consulted and is following TTE nondiagnostic, per cardiology recommendation YUE inappropriate at this time Patient is unlikely to be a good candidate for valve replacement given his current condition Palliative care consult to be placed per cardiology Per palliative care, family is requesting patient be transferred to [facility] Transfer to [facility] is pending awaiting bed availability Qualifiers: Endocarditis type: infective Infective endocarditis organism: bacterial Qualified Code(s): I33.0 - Acute and subacute infective endocarditis (5) Type 2 diabetes mellitus Current Visit: Yes Status: Acute Patient is currently receiving a low dose sliding scale insulin regimen POC glucose shows well controlled Continue to monitor Qualifiers: Diabetes mellitus [facility] insulin use: with [facility] use Diabetes mellitus complication status: with kidney complications Diabetes mellitus complication detail: with chronic kidney disease Chronic kidney disease stage : on chronic dialysis Qualified Code(s): E11.22 - Type 2 diabetes mellitus with diabetic chronic kidney disease; N18.6 - End stage renal disease; Z79.4 - [facility] (current) use of insulin; Z99.2 - Dependence on renal dialysis Subjective Principal diagnosis: Septic shock Interval history: Patient is a 57-year-old -Spanish male with history of tracheostomy placement, end-stage renal disease, and aortic valve endocarditis. Patient was a transfer from the [place] emergency department for MRSA bacteremia which was discovered after patient was found to have a fever on January 12 at his intermediate and the [facility]. [facility] revealed MRSA bacteremia and the patient was subsequently started on vancomycin and Zosyn. Patient blood cultures have since shown MRSA bacteremia of the blood as well as Klebsiella infection of his HD catheter. Patient was initially switched from Zosyn to meropenem for coverage of gram- negative rods and later from meropenem for levofloxacin 500 mg daily. No acute events overnight, patient remains unresponsive to physical exam-head CT showed no acute abnormalities. Patient HD tunnel catheter removed on January 17 and culture tip was found to be positive for Klebsiella. Patient's power of claims attorney has consented to insertion of temporary hemodialysis catheter which will be completed by interventional radiology. Patient's family requested transfer from [facility] to [facility], transfer pending awaiting bed availability. Objective PUL Vital signs: Last Vital Signs Temp 97.5 F L 01/18/18 11:00 Pulse 80 01/18/18 12:00 Resp 16 01/18/18 12:00 BP 91/40 01/18/18 12:00 Pulse Ox 99 01/18/18 12:00 General appearance: no acute distress, other (Patient opens his eyes spontaneously but otherwise has no significant interaction to questioning or examination) Eyes: nonicteric ENT: oropharynx moist Effort: other (Mechanically ventilated) Auscultation: bilateral: wheezes, rhonchi Cardiovascular: murmur noted (There is a harsh, blowing, 3/6 systolic murmur noted in the fourth intercostal space left sternal border) Gastrointestinal: hypoactive bowel sounds, soft, non-tender (Patient does not grimace or guard to abdominal palpation), non-distended Extremities: edema (Patient has significant nonpitting edema in all 4 extremities) unable to assess due to mental status Ventilator Settings Ventilator Settings: Ventilator Settings, Last 8 Hours Ventilator Tidal Volume 400 Setting Ventilator Tidal Volume 400 Setting Ventilator Tidal Volume 400 Setting Ventilator Tidal Volume 400 Setting Ventilator Tidal Volume 400 Setting Ventilator Tidal Volume 400 Setting Ventilator Tidal Volume 400 Setting Ventilator Tidal Volume 400 Setting Ventilator Tidal Volume 400 Setting Ventilator Tidal Volume 400 Setting Ventilator Respiratory Rate 12 Setting Ventilator Respiratory Rate 12 Setting Ventilator Respiratory Rate 12 Setting Ventilator Respiratory Rate 12 Setting Ventilator Respiratory Rate 12 Setting Ventilator Respiratory Rate 12 Setting Ventilator Respiratory Rate 12 Setting Ventilator Respiratory Rate 12 Setting Ventilator Respiratory Rate 12 Setting Ventilator Respiratory Rate 12 Setting Actual Respiratory Rate 16 Actual Respiratory Rate 12 Actual Respiratory Rate 15 Actual Respiratory Rate 13 Actual Respiratory Rate 12 Actual Respiratory Rate 15 Actual Respiratory Rate 15 Actual Respiratory Rate 12 Actual Respiratory Rate 15 Actual Respiratory Rate 20 Positive End Expiratory 5 Pressure Positive End Expiratory 5 Pressure Positive End Expiratory 5 Pressure Positive End Expiratory 5 Pressure Positive End Expiratory 5 Pressure Positive End Expiratory 5 Pressure Positive End Expiratory 5 Pressure Positive End Expiratory 5 Pressure Positive End Expiratory 5 Pressure Positive End Expiratory 5 Pressure Peak Inspiratory Airway 16 Pressure Peak Inspiratory Airway 15 Pressure Peak Inspiratory Airway 16 Pressure Peak Inspiratory Airway 16 Pressure Peak Inspiratory Airway 15 Pressure Peak Inspiratory Airway 15 Pressure Peak Inspiratory Airway 15 Pressure Peak Inspiratory Airway 14 Pressure Peak Inspiratory Airway 15 Pressure Peak Inspiratory Airway 19 Pressure Results - Laboratory Findings CBC and BMP: 01/18/18 03:35 01/18/18 03:35 ABG ABG pH 7.46 pH Units (7.32-7.45) H 01/18/18 04:41 ABG pCO2 34 mmHg (35-45) L 01/18/18 04:41 ABG pO2 94 mmHg (85-104) 01/18/18 04:41 ABG O2 Saturation 98 % (95-98) 01/18/18 04:41 Abnormal lab findings: Abnormal lab results RBC 3.89 M/mcL (4.19-5.50) L 01/18/18 03:35 Hgb 10.8 g/dL (12.9-16.9) L 01/18/18 03:35 Hct 36.2 % (37.5-50.1) L 01/18/18 03:35 MCH 27.8 pg (28.0-33.3) L 01/18/18 03:35 MCHC 29.8 g/dL (31.6-35.5) L 01/18/18 03:35 RDW 18.3 % (11.5-14.5) H 01/18/18 03:35 Plt Count 126 K/mcL (140-400) L 01/18/18 03:35 MPV 13.5 fL (9.4-12.4) H 01/18/18 03:35 Nucleated RBCs/100 WBC 0.7 /100 WBC (0) H 01/18/18 03:35 ABG pH 7.46 pH Units (7.32-7.45) H 01/18/18 04:41 ABG pCO2 34 mmHg (35-45) L 01/18/18 04:41 Sodium 134 mEq/L (136-145) L 01/18/18 03:35 Chloride 97 mEq/L (98-107) L 01/18/18 03:35 BUN 76 mg/dL (6-20) H 01/18/18 03:35 Creatinine 4.18 mg/dL (0.70-1.30) H 01/18/18 03:35 Est GFR ( Amer) 18 (> 60) L 01/18/18 03:35 Est GFR (Non-Af Amer) 15 (> 60) L 01/18/18 03:35 Glucose 175 mg/dL (70-105) H 01/18/18 03:35 POC Glucose 231 mg/dL (70-99) H 01/18/18 11:51 Calculated Osmolality 305 (280-300) H 01/18/18 03:35 Calcium 8.3 mg/dL (8.6-10.3) L 01/18/18 03:35 Vancomycin Trough 22 mcg/mL (5-10) H 01/15/18 12:02 Rheumatoid Factor 15 IU/mL (Less than 14) H 01/18/18 09:34 Enterobacteriac sp PCR DETECTED (Not Detect) A 01/15/18 16:00 Klebsiella pneumoniae DETECTED (Not Detect) A 01/15/18 16:00 - Microbiology Findings Microbiology Findings: Microbiology, Last 48 Hours 01/15/18 16:00 Blood Culture - Preliminary Central Venous Catheter Klebsiella pneumoniae MDRO 01/15/18 12:10 Sputum Culture - Final Aspirate Pseudomonas aeruginosa Klebsiella pneumoniae MDRO 01/17/18 13:18 Blood Culture - Preliminary Peripheral Venipuncture Culture is incubating and being continuously monitored for growth. Final report to follow. 01/17/18 13:18 Blood Culture - Preliminary Peripheral Venipuncture Culture is incubating and being continuously monitored for growth. Final report to follow. - Clinical Findings Intake & Output: Intake & Output 01/17/18 01/18/18 01/18/18 23:59 07:59 15:59 Intake Total 126 / 126 136 / 136 Output Total 50 / 50 75 / 75 50 / 50 Balance 76 / 76 61 / 61 -50 / -50 Weight 65 kg Consult Discharge Plan - Plan Referrals: Thomas Montero MD [Primary Care Provider] -
--- NOTE | 2018-01-18 13:43 | Event Note ---
Date of Encounter: 01/18/18 Time of Encounter: 11:30 - Cardiology Event Note Patient awaiting bed placement at [facility] for second opinion for prognosis and if he would be surgical candidate for his heart valve if needed. Currently full code. Continues to require pressor support for b/p. I.D following. Appreciate palliative care assistance. Call with questions.
[2018-01-18] MEDS ORDERED: Levofloxacin 500 MG/100 ML 500 MG/100 ML BAG IVPB SCH (15:00)
--- NOTE | 2018-01-18 15:26 | IR Procedure Note ---
Date of procedure: 01/18/18 Consent Obtained: Verbal consent, Written consent Timeout: Correct patient and procedure verified, Correct site verified, Time out performed, Skin prep completed Local anesthetic: Lidocaine 1% Indications: needs dialysis Procedure Performed: right IJ temporary HD catheter Was there an fast food assistant restaurant manager present: Yes Lab Analyst: Suhas Neri Site/Technique: right IJ Results/Findings: as above Estimated blood loss (cc): 0 Complications: None; Tolerated procedure well Post Procedure Treatment Plan: use catheter Specimen: NA
[2018-01-18 15:56] VITALS: BP 95/46
[2018-01-18] MEDS ORDERED: Aminoglycoside Consult 1 EACH MC ONE (16:26)
[2018-01-19] MEDS ORDERED: Levofloxacin 250 MG/50 ML 250 MG/50 ML BAG IVPB SCH (12:00)
== END 2018-01-18 16:27 | disposition critical access hospital (66) | DRG 721 ==
LOC: ICNU
PROVIDERS: ADMIT Internal Medicine; ATTEND Internal Medicine Pulmonary Disease